=== PATIENT | female | born 1985 | race African-American/Black ===

== ENCOUNTER 2019-04-12 16:15 | Emergency (ER) | payer OTHER ==
--- NOTE | 2019-04-12 17:19 | ER ---
Nurse's Notes [facility] Name: Roque Smith Age: 33 yrs Sex: Female : 1985 Arrival Date: 04/12/2019 Time: 16:16 Bed 12 Private MD: Diagnosis: Low back pain Presentation: 04/12 16:33 Presenting complaint: Patient states: lower back pain for 6 months, has been taking la1 nsaids and tylenol but I do not like taking pills and they are not helping. Transition of care: patient was not received from another setting of care. Onset of symptoms was April 12, 2019. Risk Assessment: Do you want to hurt yourself or someone else? Patient reports no desire to harm self or others. Initial Sepsis Screen: Does the patient meet any 2 criteria? No. Patient's initial sepsis screen is negative. Does the patient have a suspected source of infection? No. Patient's initial sepsis screen is negative. Care prior to arrival: None. 16:33 Method Of Arrival: Ambulatory la1 16:33 Acuity: DANNIE 5 la1 Historical: - Allergies: 16:33 No Known Allergies; la1 - PMHx: 16:33 Hypertension; la1 - Immunization history:: Adult Immunizations up to date. - Social history:: Smoking status: Patient/guardian denies using tobacco. - Ebola Screening: : No symptoms or risks identified at this time. Screenin:43 Abuse screen: Denies threats or abuse. Nutritional screening: No deficits noted. la1 Tuberculosis screening: No symptoms or risk factors identified. Fall Risk None identified. Assessment: 16:42 General: Appears in no apparent distress. Behavior is calm, cooperative. Pain: la1 Complains of pain in left low back and right low back. Neuro: Level of Consciousness is awake, alert, obeys commands, Oriented to person, place, time, situation. Neuro: Gait is steady. Cardiovascular: Capillary refill < 3 seconds Patient's skin is warm and dry. Respiratory: Airway is patent Respiratory effort is even, unlabored. GI: No signs and/or symptoms were reported involving the gastrointestinal system. : No signs and/or symptoms were reported regarding the genitourinary system. Musculoskeletal: Circulation, motion, and sensation intact. Vital Signs: 16:32 BP 123 / 85; Pulse 76; Resp 16; Temp 97.5; Pulse Ox 98% on R/A; Weight 108.86 kg; la1 Height 5 ft. 3 in. (160.02 cm); 16:32 Body Mass Index 42.51 (108.86 kg, 160.02 cm) la1 ED Course: 16:16 Patient arrived in ED. as 16:33 Triage completed. la1 16:33 Arm band placed on left wrist. la1 16:42 Carroll Alaniz, RN is Primary Nurse. la1 16:43 Patient has correct armband on for positive identification. la1 16:43 No provider procedures requiring assistance completed. Patient did not have IV access la1 during this emergency room visit. 16:47 [facility] Re[facility] F[facility]-C [facility]. kb 16:47 Rickie Paniagua MD is Attending Physician. kb Administered Medications: No medications were administered Outcome: 17:18 Discharge ordered by MD. kb 17:38 Discharged to home ambulatory. la1 17:38 Condition: stable 17:38 Discharge instructions given to patient, Instructed on discharge instructions, follow up and referral plans. medication usage, Demonstrated understanding of instructions, follow-up care, medications, Prescriptions given X 1. 17:39 Patient left the ED. la1 Signatures: Yara Reza FNP-C ADVICE LINE RN-Cass Escamilla as Carroll Alaniz, RN RN la1
--- NOTE | 2019-04-12 17:19 | EDPHYS ---
Physician Documentation [facility] Name: Roque Smith Age: 33 yrs Sex: Female : 1985 Arrival Date: 04/12/2019 Time: 16:16 Bed 12 Private MD: ED Physician Rickie Paniagua HPI: 04/12 18:00 This 33 yrs old Black Female presents to ER via Ambulatory with complaints of Leg Pain, kb Back Pain. 18:01 The patient presents with pain that is chronic, with no known mechanism of injury. The kb symptoms are located in the low back. Onset: The symptoms/episode began/occurred 6 month(s) ago. The pain does not radiate. Associated signs and symptoms: The patient has no apparent associated signs or symptoms. The problem was sustained from unknown cause. Modifying factors: The patient symptoms are alleviated by nothing, the patient symptoms are aggravated by any movement. Severity of symptoms: At their worst the symptoms were moderate, in the emergency department the symptoms are unchanged. The patient has not experienced similar symptoms in the past. The patient has not recently seen a physician. Historical: - Allergies: 16:33 No Known Allergies; la1 - PMHx: 16:33 Hypertension; la1 - Immunization history:: Adult Immunizations up to date. - Social history:: Smoking status: Patient/guardian denies using tobacco. - Ebola Screening: : No symptoms or risks identified at this time. ROS: 17:55 Constitutional: Negative for fever, chills, and weight loss, Neck: Negative for injury, kb pain, and swelling, Cardiovascular: Negative for chest pain, palpitations, and edema, Respiratory: Negative for shortness of breath, cough, wheezing, and pleuritic chest pain, Abdomen/GI: Negative for abdominal pain, nausea, vomiting, diarrhea, and constipation, : Negative for injury, bleeding, discharge, and swelling, MS/Extremity: Negative for injury and deformity, Skin: Negative for injury, rash, and discoloration, Neuro: Negative for headache, weakness, numbness, tingling, and seizure. 17:55 Back: Positive for pain at rest, pain with movement, of the low back area. Exam: 17:55 Constitutional: This is a well developed, well nourished patient who is awake, alert, kb and in no acute distress. Head/Face: Normocephalic, atraumatic. Chest/axilla: Normal chest wall appearance and motion. Nontender with no deformity. No lesions are appreciated. Cardiovascular: Regular rate and rhythm with a normal S1 and S2. No gallops, murmurs, or rubs. Normal PMI, no JVD. No pulse deficits. Respiratory: Lungs have equal breath sounds bilaterally, clear to auscultation and percussion. No rales, rhonchi or wheezes noted. No increased work of breathing, no retractions or nasal flaring. Abdomen/GI: Soft, non-tender, with normal bowel sounds. No distension or tympany. No guarding or rebound. No evidence of tenderness throughout. Skin: Warm, dry with normal turgor. Normal color with no rashes, no lesions, and no evidence of cellulitis. MS/ Extremity: Pulses equal, no cyanosis. Neurovascular intact. Full, normal range of motion. Neuro: Awake and alert, GCS 15, oriented to person, place, time, and situation. Cranial nerves II-XII grossly intact. Motor strength 5/5 in all extremities. Sensory grossly intact. Cerebellar exam normal. Normal gait. 17:55 Back: pain, that is moderate, of the low back area, ROM is painful, with all movement, normal spinal alignment noted. 18:01 Neuro: Exam negative for acute changes. kb Vital Signs: 16:32 BP 123 / 85; Pulse 76; Resp 16; Temp 97.5; Pulse Ox 98% on R/A; Weight 108.86 kg; la1 Height 5 ft. 3 in. (160.02 cm); 16:32 Body Mass Index 42.51 (108.86 kg, 160.02 cm) la1 MDM: 16:47 Patient medically screened. kb 17:55 Data reviewed: vital signs, nurses notes. Data interpreted: Pulse oximetry: on room air kb is 98 %. Interpretation: normal. 17:56 Counseling: I had a detailed discussion with the patient and/or guardian regarding: the kb historical points, exam findings, and any diagnostic results supporting the discharge/admit diagnosis, the need for outpatient follow up, a family practitioner, to return to the emergency department if symptoms worsen or persist or if there are any questions or concerns that arise at home. Administered Medications: No medications were administered Disposition: 18:15 Co-signature as Attending Physician, Rickie Paniagua MD. rn Disposition: 04/12/19 17:18 Discharged to Home. Impression: Low back pain. - Condition is Stable. - Discharge Instructions: Back Injury Prevention, [id number], Back Pain, Adult, Dbdw-[id number], Back Exercises, Yknw-uy-Rrto. - Prescriptions for Cyclobenzaprine 10 mg Oral Tablet - take 1 tablet by ORAL route every 8 hours As needed; 21 tablet. - Medication Reconciliation Form, Thank You Letter, Antibiotic Education, Prescription Opioid Use form. - Follow up: Emergency Department; When: As needed; Reason: Worsening of condition. Follow up: Private Physician; When: 2 - 3 days; Reason: Recheck today's complaints, Continuance of care, Re-evaluation by your physician. Signatures: Yara Reza, IZABELLA-C CHERRY PITTER-Rickie Avila MD MD rn AttemCarroll saravia RN RN la1 Corrections: (The following items were deleted from the chart) 17:39 17:18 04/12/2019 17:18 Discharged to Home. Impression: Low back pain. Condition is la1 Stable. Forms are Medication Reconciliation Form, Thank You Letter, Antibiotic Education, Prescription Opioid Use. Follow up: Emergency Department; When: As needed; Reason: Worsening of condition. Follow up: Private Physician; When: 2 - 3 days; Reason: Recheck today's complaints, Continuance of care, Re-evaluation by your physician. kb
[2019-04-12 17:57] VITALS: BP 123/85; TEMP 97.5; O2SAT 98
== END 2019-04-12 17:39 | disposition home or self-care (01) ==
LOC: ER 16:15
DX: M54.5 Low back pain (principal)
CPT/HCPCS: 99282

== ENCOUNTER 2020-07-23 12:12 | Emergency (ER) | payer OTHER ==
[2012-03-10 09:05] VITALS: BP 118/58
--- NOTE | 2020-07-23 13:56 | EDPHYS ---
Physician Documentation [facility] Name: Roque Smith Age: 34 yrs Sex: Female : 1985 Arrival Date: 07/23/2020 Time: 12:17 Bed 23 Private MD: RIN Physician Codey Weber HPI: 07/23 14:02 This 34 yrs old Black Female presents to ER via Ambulatory with complaints of Mouth kb Problem. 14:02 The patient presents with pain, redness, swelling. The problem is located in the gums kb and left buccal mucosa. Onset: The symptoms/episode began/occurred 3 month(s) ago, and became worse 1 week(s) ago. Duration: The symptoms are continuous. Modifying factors: The symptoms are alleviated by nothing, the symptoms are aggravated by chewing, food, talking. Associated signs and symptoms: Pertinent positives: pain, redness in area, swelling. Severity of symptoms: At their worst the symptoms were moderate, in the emergency department the symptoms are unchanged. The patient has not experienced similar symptoms in the past. The patient has not recently seen a physician. Pt reports she has had a lot of pain in the upper left side of her mouth for 3 months. Went to a dentist and was told she had gingivitis. Was told she needed some things done but she had to pay for it and pt reports she won't have the money until income tax return. Mother states she got her insurance so she can go, but it doesn't kick in until August. Pain, redness and swelling has been worse over the last week.. Historical: - Allergies: 12:24 PENICILLINS; vg1 - PMHx: 12:24 Hypertension; vg1 - Immunization history:: Adult Immunizations up to date, Flu vaccine is not up to date. - Social history:: Smoking status: Patient denies any tobacco usage or history of. ROS: 13:58 Constitutional: Negative for fever, chills, and weight loss, Cardiovascular: Negative kb for chest pain, palpitations, and edema, Respiratory: Negative for shortness of breath, cough, wheezing, and pleuritic chest pain, Abdomen/GI: Negative for abdominal pain, nausea, vomiting, diarrhea, and constipation, MS/Extremity: Negative for injury and deformity, Skin: Negative for injury, rash, and discoloration, Neuro: Negative for headache, weakness, numbness, tingling, and seizure. 13:58 ENT: Positive for dental pain. Exam: 13:58 Constitutional: This is a well developed, well nourished patient who is awake, alert, kb and in no acute distress. Head/Face: Normocephalic, atraumatic. Chest/axilla: Normal chest wall appearance and motion. Nontender with no deformity. No lesions are appreciated. Cardiovascular: Regular rate and rhythm with a normal S1 and S2. No gallops, murmurs, or rubs. Normal PMI, no JVD. No pulse deficits. Respiratory: Lungs have equal breath sounds bilaterally, clear to auscultation and percussion. No rales, rhonchi or wheezes noted. No increased work of breathing, no retractions or nasal flaring. Abdomen/GI: Soft, non-tender, with normal bowel sounds. No distension or tympany. No guarding or rebound. No evidence of tenderness throughout. Skin: Warm, dry with normal turgor. Normal color with no rashes, no lesions, and no evidence of cellulitis. MS/ Extremity: Pulses equal, no cyanosis. Neurovascular intact. Full, normal range of motion. Neuro: Awake and alert, GCS 15, oriented to person, place, time, and situation. Cranial nerves II-XII grossly intact. Motor strength 5/5 in all extremities. Sensory grossly intact. Cerebellar exam normal. Normal gait. 13:58 ENT: Dental exam: abscess, gum swelling, pain. Vital Signs: 12:18 BP 122 / 87; Pulse 91; Resp 16; Temp 98.4; Pulse Ox 99% on R/A; Weight 110.68 kg; vg1 Height 5 ft. 3 in. (160.02 cm); Pain 10/10; 12:18 Body Mass Index 43.22 (110.68 kg, 160.02 cm) vg1 MDM: 13:46 Patient medically screened. kb 13:55 Data reviewed: vital signs, nurses notes. Data interpreted: Pulse oximetry: on room air kb is 99 %. Interpretation: normal. Counseling: I had a detailed discussion with the patient and/or guardian regarding: the historical points, exam findings, and any diagnostic results supporting the discharge/admit diagnosis, the need for outpatient follow up, a dentist, to return to the emergency department if symptoms worsen or persist or if there are any questions or concerns that arise at home. Administered Medications: 14:12 Drug: Clindamycin 600 mg Route: IM; Site: right gluteus; ss 14:27 Follow up: Response: No adverse reaction ss 14:12 Drug: [place] (7.5 mg-325 mg) 1 tabs Route: PO; ss 14:27 Follow up: Response: No adverse reaction; Medication administered at discharge. ss Disposition: 15:51 Co-signature as Attending Physician, Codey Weber MD I agree with the assessment and radha plan of care. Disposition: 07/23/20 13:56 Discharged to Home. Impression: Periapical abscess without sinus, Gingivitis and periodontal diseases. - Condition is Stable. - Discharge Instructions: Dental Pain, Kqye-jl-Shbf, Gingivitis, Nnou-eo-Ngnt, Dental Abscess, Fmrz-he-Yijk. - Prescriptions for chlorhexidine gluconate 0.12 % Mucous Membrane mouthwash - place 15 milliliter by MUCOUS MEMBRANE route 2 times per day after brushing teeth, swish in mouth for 30 seconds then spit out; 480 milliliter. Clindamycin HCl 300 mg Oral Capsule - take 1 capsule by ORAL route every 6 hours for 10 days; 40 capsule. Diclofenac Sodium 75 mg Oral Tablet, Delayed Release (E.C.) - take 1 tablet by ORAL route 2 times per day As needed; 30 tablet. - Medication Reconciliation Form, Thank You Letter, Antibiotic Education, Prescription Opioid Use form. - Follow up: Emergency Department; When: As needed; Reason: Worsening of condition. Follow up: Private Physician; When: 2 - 3 days; Reason: Recheck today's complaints, Continuance of care, Re-evaluation by your physician. Signatures: Yara Reza, CERTIFIED REGISTERED DENTAL ASSISTANT-C IZABELLA-Codey Khoury MD MD cha Smirch, Shelby, RN RN ss Garcia, Victoria, RN RN vg1 Corrections: (The following items were deleted from the chart) 14:27 13:56 07/23/2020 13:56 Discharged to Home. Impression: Periapical abscess without ss sinus; Gingivitis and periodontal diseases. Condition is Stable. Forms are Medication Reconciliation Form, Thank You Letter, Antibiotic Education, Prescription Opioid Use. Follow up: Emergency Department; When: As needed; Reason: Worsening of condition. Follow up: Private Physician; When: 2 - 3 days; Reason: Recheck today's complaints, Continuance of care, Re-evaluation by your physician. kb
--- NOTE | 2020-07-23 13:56 | ER ---
Nurse's Notes [facility] Name: Roque Smith Age: 34 yrs Sex: Female : 1985 Arrival Date: 07/23/2020 Time: 12:17 Bed 23 Private MD: Diagnosis: Periapical abscess without sinus;Gingivitis and periodontal diseases Presentation: 07/23 12:18 Chief complaint: Parent and/or Guardian states: Mouth pain for about 2 weeks ago. vg1 Parent states its 'gingivitis' and there is a 'hole' at the top of the mouth. Coronavirus screen: Client denies travel out of the [place] in the last 14 days. At this time, the client does not indicate any symptoms associated with coronavirus-19. Ebola Screen: Patient negative for fever greater than or equal to 101.5 degrees Fahrenheit, and additional compatible Ebola Virus Disease symptoms. Initial Sepsis Screen: Does the patient meet any 2 criteria? No. Patient's initial sepsis screen is negative. Does the patient have a suspected source of infection? No. Patient's initial sepsis screen is negative. Risk Assessment: Do you want to hurt yourself or someone else? Patient reports no desire to harm self or others. Onset of symptoms was June 2020. 12:18 Acuity: DANNIE 4 vg1 12:18 Method Of Arrival: Ambulatory vg1 Triage Assessment: 12:26 General: Appears in no apparent distress. Behavior is calm, cooperative. Pain: vg1 Complains of pain in mouth Pain currently is 10 out of 10 on a pain scale. Pain began two weeks ago. Neuro: Level of Consciousness is awake, alert, obeys commands, Oriented to person, place, time, situation. Respiratory: Respiratory effort is even, unlabored. Historical: - Allergies: 12:24 PENICILLINS; vg1 - PMHx: 12:24 Hypertension; vg1 - Immunization history:: Adult Immunizations up to date, Flu vaccine is not up to date. - Social history:: Smoking status: Patient denies any tobacco usage or history of. Screenin:12 Abuse screen: Denies threats or abuse. Denies injuries from another. Nutritional ss screening: No deficits noted. Tuberculosis screening: Never had TB. Fall Risk None identified. Assessment: 13:55 General: Appears uncomfortable, Behavior is calm, cooperative, quiet. Pain: Complains ss of pain in left buccal mucosa and gums and mouth Pain currently is 10 out of 10 on a pain scale. Quality of pain is described as tender, throbbing. Neuro: Level of Consciousness is awake, alert, obeys commands. Respiratory: Respiratory effort is even, unlabored, Respiratory pattern is regular, symmetrical. Derm: Skin is intact, is healthy with good turgor, Skin is dry, Skin is pink, warm \T\ dry. normal. Musculoskeletal: Circulation, motion, and sensation intact. Range of motion: intact in all extremities. 14:13 Reassessment: Patient appears in no apparent distress at this time. Patient and/or ss family updated on plan of care and expected duration. Pain level reassessed. Patient is alert, oriented x 3, equal unlabored respirations, skin warm/dry/pink. Vital Signs: 12:18 BP 122 / 87; Pulse 91; Resp 16; Temp 98.4; Pulse Ox 99% on R/A; Weight 110.68 kg; vg1 Height 5 ft. 3 in. (160.02 cm); Pain 10/10; 12:18 Body Mass Index 43.22 (110.68 kg, 160.02 cm) vg1 ED Course: 12:17 Patient arrived in ED. mr 12:24 Triage completed. vg1 12:25 Arm band placed on. vg1 13:46 Yara Reza FNP-C is [facility]. kb 13:46 Codey Weber MD is Attending Physician. kb 13:58 Maya Eli, DAVID is Primary Nurse. ss 14:12 Patient has correct armband on for positive identification. Bed in low position. Call ss light in reach. 14:12 No provider procedures requiring assistance completed. Patient did not have IV access ss during this emergency room visit. Administered Medications: 14:12 Drug: Clindamycin 600 mg Route: IM; Site: right gluteus; ss 14:27 Follow up: Response: No adverse reaction ss 14:12 Drug: [place] (7.5 mg-325 mg) 1 tabs Route: PO; ss 14:27 Follow up: Response: No adverse reaction; Medication administered at discharge. ss Outcome: 13:56 Discharge ordered by . kb 14:26 Discharged to home ambulatory, with family. ss 14:26 Condition: good 14:26 Discharge instructions given to patient, family, Instructed on discharge instructions, follow up and referral plans. medication usage, Demonstrated understanding of instructions, follow-up care, medications, Prescriptions given X 3. 14:27 Patient left the ED. ss Signatures: Yara Reza, IZABELLA-C COLD ROLL INSPECTOR-Maude Camacho mr Maya Eli, RN RN ss Dalia Parr RN RN vg1
[2020-07-23] MEDS ORDERED: CLINDAMYCIN IV 150 MG/ML (4 mL) VIAL ONE (14:15)
[2020-07-23] MEDS ORDERED: HYDROCODONE/APAP 7.5/325 MG TAB ONE (14:18)
== END 2020-07-23 14:27 | disposition home or self-care (01) ==
LOC: ER 12:12
DX: K04.7 Periapical abscess without sinus (principal); K05.10 Chronic gingivitis, plaque induced; I10 Essential (primary) hypertension; Z88.0 Allergy status to penicillin
CPT/HCPCS: 96372; 99283; S0077

== ENCOUNTER 2020-11-30 18:49 | Emergency (ER) | payer OTHER ==
[2012-03-10 09:05] VITALS: BP 118/58
--- NOTE | 2020-11-30 19:20 | ER ---
[facility]'s [facility] Name: Roque Smith Age: 35 yrs Sex: Female : 1985 Arrival Date: 11/30/2020 Time: 18:52 Bed 14 Private MD: Diagnosis: Periapical abscess without sinus;Gingivitis and periodontal diseases Presentation: 11/30 19:04 Chief complaint: Patient states: Gum pain, swelling for 1 month. States she came in 1 August for the same. Trying to find a dentist that takes her insurance. Coronavirus screen: Client denies travel out of the [place] in the last 14 days. At this time, the client does not indicate any symptoms associated with coronavirus-19. Ebola Screen: Patient denies travel to an Ebola-affected area in the 21 days before illness onset. Initial Sepsis Screen: Does the patient meet any 2 criteria? HR > 90 bpm. No. Patient's initial sepsis screen is negative. Does the patient have a suspected source of infection? Yes: Other: gum infection. Risk Assessment: Do you want to hurt yourself or someone else? Patient reports no desire to harm self or others. Onset of symptoms was October 30, 2020. 19:04 Method Of Arrival: Ambulatory 1 19:04 Acuity: DANNIE 4 ll1 Triage Assessment: 19:06 General: Appears uncomfortable, Behavior is calm, cooperative. Pain: Complains of pain ll1 in mouth Quality of pain is described as aching. EENT: redness, swelling to gums of mouth (all over). Reports pain in mouth/gums. Neuro: No deficits noted. Cardiovascular: No deficits noted. Respiratory: No deficits noted. REVENUE ACCOUNTING MANAGER: 19:57 LMP N/A - control method ll1 Historical: - Allergies: 19:03 PENICILLINS; ll1 - PMHx: 19:03 Hypertension; Asthma; ll1 - PSHx: 19:03 None; ll1 - Immunization history:: Flu vaccine is up to date. - Social history:: Smoking status: Patient denies any tobacco usage or history of. Screenin:06 Abuse screen: Denies threats or abuse. Nutritional screening: No deficits noted. ll1 Tuberculosis screening: No symptoms or risk factors identified. Fall Risk None identified. Total Ortiz Fall Scale indicates No Risk (0-24 pts). Assessment: 19:56 Reassessment: No changes from previously documented assessment. Patient and/or family ll1 updated on plan of care and expected duration. Pain level reassessed. Vital Signs: 19:04 BP 125 / 85; Pulse 102; Resp 18; Temp 97.5; Pulse Ox 98% on R/A; Weight 111.13 kg; ll1 Height 5 ft. 3 in. (160.02 cm); Pain 10/10; 19:56 BP 122 / 86; ll1 19:56 Pulse 91; Resp 18; Pulse Ox 98% ; ll1 19:04 Body Mass Index 43.40 (111.13 kg, 160.02 cm) 1 ED Course: 18:52 Patient arrived in ED. ds1 18:58 Darrel Montalvo NP is [facility]. pm1 18:59 Rickie Paniagua MD is Attending Physician. pm1 19:03 Jenelle Monaco, RN is Primary Nurse. ll1 19:03 Arm band placed on Patient placed in an exam room, on a stretcher. ll1 19:06 Triage completed. ll1 19:06 Patient has correct armband on for positive identification. Bed in low position. Call ll1 light in reach. Side rails up X 1. Pulse ox on. NIBP on. 19:56 No provider procedures requiring assistance completed. Patient did not have IV access ll1 during this emergency room visit. Administered Medications: 19:38 Drug: Clindamycin 600 mg Route: IM; Site: left gluteus; ll1 19:55 Follow up: Response: No adverse reaction; RASS: Alert and Calm (0) ll1 19:38 Drug: [place] (HYDROcodone-acetaminophen) (7.5 mg-325 mg) 1 tabs Route: PO; ll1 19:55 Follow up: Response: No adverse reaction; RASS: Alert and Calm (0) 1 Outcome: 19:19 Discharge ordered by . pm1 19:57 Discharged to home ambulatory. ll1 19:57 Condition: stable 19:57 Discharge instructions given to patient, Instructed on discharge instructions, follow up and referral plans. medication usage, Demonstrated understanding of instructions, follow-up care, medications, Prescriptions given X 3. 19:57 Patient left the ED. ll1 Signatures: Makenna Hines ds1 Darrel Montalvo NP AGRICULTURAL PLOW OPERATOR pm1 Jenelle Monaco, RN RN ll1
--- NOTE | 2020-11-30 19:20 | EDPHYS ---
Physician Documentation [facility] Name: Roque Smith Age: 35 yrs Sex: Female : 1985 Arrival Date: 11/30/2020 Time: 18:52 Bed 14 Private MD: ED Physician Rickie Paniagua HPI: 11/30 19:19 This 35 yrs old Black Female presents to ER via Ambulatory with complaints of Mouth pm1 Swelling, Jaw Pain. 19:19 The patient presents with pain, swelling. The problem is located in the upper left pm1 second molar. Onset: The symptoms/episode began/occurred 1 month(s) ago. Duration: The symptoms are chronic, are continuous. Modifying factors: The symptoms are alleviated by nothing. Associated signs and symptoms: Pertinent negatives: dysphagia, fever, inability to eat, vomiting. Severity of symptoms: in the emergency department the symptoms are actually worse. Went to the [place] [facility] and was told that she needs to extract all her teeth. She wanted another option and is going to see a dentist in [place] that takes her insurance. 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 - Social history:: Smoking status: Patient denies any tobacco usage or history of. ROS: 19:19 Constitutional: Negative for fever, chills, and weight loss. pm1 19:19 Neck: Negative for injury, pain, and swelling, Cardiovascular: Negative for chest pain, palpitations, and edema, Respiratory: Negative for shortness of breath, cough, wheezing, and pleuritic chest pain, Neuro: Negative for headache, weakness, numbness, tingling, and seizure. 19:19 ENT: Positive for dental pain, Negative for sore throat, difficulty swallowing, difficulty handling secretions, hoarseness. Exam: 19:19 Constitutional: This is a well developed, well nourished patient who is awake, alert, pm1 and in no acute distress. Head/Face: Normocephalic, atraumatic. 19:19 Neck: Trachea midline, no thyromegaly or masses palpated, and no cervical lymphadenopathy. Supple, full range of motion without nuchal rigidity, or vertebral point tenderness. No Meningismus. 19:19 Skin: Warm, dry with normal turgor. Normal color with no rashes, no lesions, and no evidence of cellulitis. MS/ Extremity: Pulses equal, no cyanosis. Neurovascular intact. Full, normal range of motion. 19:19 ENT: External ear(s): are unremarkable, Ear canal(s): are normal, TM's: are normal, Mouth: Dental exam: abscess, is not appreciated, gum swelling, that is moderate, diffusely, pain, that is mild, specifically in the upper left second molar (#15). 19:19 Cardiovascular: Exam negative for acute changes, Rate: normal, Rhythm: regular, Pulses: no pulse deficits are appreciated. 19:19 Respiratory: Exam negative for acute changes, respiratory distress, shortness of breath. 19:19 Neuro: Exam negative for acute changes, Orientation: is normal, Mentation: is normal, Motor: is normal, moves all fours, Gait: is steady, at a normal pace, without difficulty. Vital Signs: 19:04 BP 125 / 85; Pulse 102; Resp 18; Temp 97.5; Pulse Ox 98% on R/A; Weight 111.13 kg; ll1 Height 5 ft. 3 in. (160.02 cm); Pain 10/10; 19:56 BP 122 / 86; ll1 19:56 Pulse 91; Resp 18; Pulse Ox 98% ; ll1 19:04 Body Mass Index 43.40 (111.13 kg, 160.02 cm) ll1 MDM: 19:07 Patient medically screened. pm1 19:19 Data reviewed: vital signs. Data interpreted: Pulse oximetry: on room air is 98 %. pm1 Interpretation: normal. Counseling: I had a detailed discussion with the patient and/or guardian regarding: the historical points, exam findings, and any diagnostic results supporting the discharge/admit diagnosis, the need for outpatient follow up, for definitive care, a dentist, to return to the emergency department if symptoms worsen or persist or if there are any questions or concerns that arise at home. 19:23 ED course: Found a dentist in [place] that takes her insurance. Is planning to see them pm1 next week. Administered Medications: 19:38 Drug: Clindamycin 600 mg Route: IM; Site: left gluteus; ll1 19:55 Follow up: Response: No adverse reaction; RASS: Alert and Calm (0) ll1 19:38 Drug: [place] (HYDROcodone-acetaminophen) (7.5 mg-325 mg) 1 tabs Route: PO; ll1 19:55 Follow up: Response: No adverse reaction; RASS: Alert and Calm (0) ll1 Disposition: 12/01 07:51 Co-signature as Attending Physician, Rickie Paniagua MD. rn Disposition: 11/30/20 19:19 Discharged to Home. Impression: Periapical abscess without sinus, Gingivitis and periodontal diseases. - Condition is Stable. - Discharge Instructions: Dental Pain, Diet and Dental Disease, Preventive Dental Care, Adult. - Prescriptions for chlorhexidine gluconate 0.12 % Mucous Membrane mouthwash - place 15 milliliter by MUCOUS MEMBRANE route 2 times per day after brushing teeth, swish in mouth for 30 seconds then spit out; 480 milliliter. Clindamycin HCl 300 mg Oral Capsule - take 1 capsule by ORAL route every 6 hours for 10 days; 40 capsule. Diclofenac Sodium 75 mg Oral Tablet Sustained Release - take 1 tablet by ORAL route 2 times per day; 30 tablet. - Medication Reconciliation Form, Thank You Letter, Antibiotic Education, Prescription Opioid Use form. - Follow up: Emergency Department; When: As needed; Reason: Worsening of condition. Follow up: Private Physician; When: 2 - 3 days; Reason: Recheck today's complaints, Continuance of care, Re-evaluation by your physician. - Problem is new. - Symptoms have improved. Signatures: Rickie Paniagua MD MD rn Marinas, Patrick, NP SCREEN PRINTING PRESS OPERATOR pm1 Jenelle Monaco RN RN ll1 Corrections: (The following items were deleted from the chart) 11/30 19:57 19:19 11/30/2020 19:19 Discharged to Home. Impression: Periapical abscess without ll1 sinus; Gingivitis and periodontal diseases. Condition is Stable. Forms are Medication Reconciliation Form, Thank You Letter, Antibiotic Education, Prescription Opioid Use. Follow up: Emergency Department; When: As needed; Reason: Worsening of condition. Follow up: Private Physician; When: 2 - 3 days; Reason: Recheck today's complaints, Continuance of care, Re-evaluation by your physician. Problem is new. Symptoms have improved. pm1
[2020-11-30] MEDS ORDERED: CLINDAMYCIN IV 150 MG/ML (4 mL) VIAL ONE (19:46)
[2020-11-30] MEDS ORDERED: HYDROCODONE/APAP 7.5/325 MG TAB ONE (19:46)
== END 2020-11-30 19:57 | disposition home or self-care (01) ==
LOC: ER 18:49
DX: K04.7 Periapical abscess without sinus (principal); K05.10 Chronic gingivitis, plaque induced; K05.6 Periodontal disease, unspecified; I10 Essential (primary) hypertension; J45.909 Unspecified asthma, uncomplicated
CPT/HCPCS: 96372; 99283; S0077

== ENCOUNTER 2021-08-06 21:10 | Emergency (ER) | payer OTHER ==
[2021-08-06] MEDS ORDERED: ONDANSETRON 4 MG (ODT) TAB ONE (23:01)
--- NOTE | 2021-08-06 23:17 | EDPHYS ---
Physician Documentation [facility] Name: Roque Smith Age: 35 yrs Sex: Female : 1985 Arrival Date: 08/06/2021 Time: 21:13 Bed 16 Private MD: ED Physician Columba Gaitan HPI: 08/06 22:17 This 35 yrs old Black Female presents to ER via EMS with complaints of Breathing jr8 Difficulty. 22:17 The patient has not experienced similar symptoms in the past. The patient has not jr8 recently seen a physician. 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 Patient denies chest pain, difficult eating or drinking, or abdominal pain. Patient denies any other illicit drug use. . 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 - Social history:: Smoking status: Patient denies any tobacco usage or history of. ROS: 22:17 Eyes: Negative for injury, pain, redness, and discharge, ENT: Negative for injury, jr8 pain, and discharge, Neck: Negative for injury, pain, and swelling, Cardiovascular: Negative for chest pain, palpitations, and edema, Abdomen/GI: Negative for abdominal pain, nausea, vomiting, diarrhea, and constipation, Back: Negative for injury and pain, MS/Extremity: Negative for injury and deformity, Skin: Negative for injury, rash, and discoloration, Neuro: Negative for headache, weakness, numbness, tingling, and seizure. 22:17 Respiratory: Positive for shortness of breath. Exam: 22:17 Eyes: Pupils equal round and reactive to light, extra-ocular motions intact. Lids and jr8 lashes normal. Conjunctiva and sclera are non-icteric and not injected. Cornea within normal limits. Periorbital areas with no swelling, redness, or edema. ENT: Nares patent. No nasal discharge, no septal abnormalities noted. Tympanic membranes are normal and external auditory canals are clear. Oropharynx with no redness, swelling, or masses, exudates, or evidence of obstruction, uvula midline. Mucous membranes moist. Neck: Trachea midline, no thyromegaly or masses palpated, and no cervical lymphadenopathy. Supple, full range of motion without nuchal rigidity, or vertebral point tenderness. No Meningismus. Cardiovascular: Regular rate and rhythm with a normal S1 and S2. No gallops, murmurs, or rubs. Normal PMI, no JVD. No pulse deficits. Respiratory: Lungs have equal breath sounds bilaterally, clear to auscultation and percussion. No rales, rhonchi or wheezes noted. No increased work of breathing, no retractions or nasal flaring. Abdomen/GI: Soft, non-tender, with normal bowel sounds. No distension or tympany. No guarding or rebound. No evidence of tenderness throughout. Back: No spinal tenderness. No costovertebral tenderness. Full range of motion. Skin: Warm, dry with normal turgor. Normal color with no rashes, no lesions, and no evidence of cellulitis. MS/ Extremity: Pulses equal, no cyanosis. Neurovascular intact. Full, normal range of motion. Neuro: Awake and alert, GCS 15, oriented to person, place, time, and situation. Cranial nerves II-XII grossly intact. Motor strength 5/5 in all extremities. Sensory grossly intact. Cerebellar exam normal. Normal gait. Vital Signs: 21:22 BP 117 / 99; Pulse 94; Resp 20 S; Temp 99(O); Pulse Ox 99% on R/A; Weight 110.68 kg bb (R); Height 5 ft. 3 in. (160.02 cm) (R); 23:20 BP 137 / 95; Pulse 75; Resp 17; Temp 98.4; Pulse Ox 97% on R/A; Pain 1/10; mr2 21:22 Body Mass Index 43.22 (110.68 kg, 160.02 cm) bb MDM: 21:29 Patient medically screened. jr8 23:15 Data reviewed: vital signs, nurses notes, and as a result, I will discharge patient. jr8 Data interpreted: Pulse oximetry: on room air is 99 %. Interpretation: normal. Counseling: I had a detailed discussion with the patient and/or guardian regarding: the historical points, exam findings, and any diagnostic results supporting the discharge/admit diagnosis, the need for outpatient follow up, a family practitioner, to return to the emergency department if symptoms worsen or persist or if there are any questions or concerns that arise at home. Administered Medications: 22:41 Drug: Zofran (Ondansetron) 4 mg Route: PO; mr2 Disposition: 08/07 19:44 Co-signature as Attending Physician, Columba Gaitan MD I agree with the assessment and sp3 plan of care. Disposition Summary: 08/06/21 23:16 Discharge Ordered Location: Home jr8 Problem: new jr8 Symptoms: have improved jr8 Condition: Stable jr8 Diagnosis - Cannabis abuse with cannabis-induced anxiety disorder jr8 Followup: jr8 - With: Private Physician - When: 2 - 3 days - Reason: Recheck today's complaints, Continuance of care, Re-evaluation by your physician Discharge Instructions: - Discharge Summary Sheet jr8 - Cannabis Use Disorder jr8 Forms: - Medication Reconciliation Form jr8 - Thank You Letter jr8 - Antibiotic Education jr8 - Prescription Opioid Use jr8 Signatures: Zahraa Nowak RN RN Parminder Hall PA PA jr8 Columba Gaitan MD MD sp3 Markel Tanner RN RN mr2
--- NOTE | 2021-08-06 23:17 | ER ---
Nurse's Notes [facility] Name: Roque Smith Age: 35 yrs Sex: Female : 1985 Arrival Date: 08/06/2021 Time: 21:13 Bed 16 Private MD: Diagnosis: Cannabis abuse with cannabis-induced anxiety disorder Presentation: 08/06 21:15 Chief complaint: EMS states: they were toned out for report of pt with difficulty bb breathing after ingesting [place] Burst on arrival room air sats were 99%. Coronavirus screen: difficulty breathing. Ebola Screen: No symptoms or risks identified at this time. Initial Sepsis Screen: Does the patient meet any 2 criteria? No. Patient's initial sepsis screen is negative. Does the patient have a suspected source of infection? No. Patient's initial sepsis screen is negative. Risk Assessment: Do you want to hurt yourself or someone else? Patient reports no desire to harm self or others. Onset of symptoms was August 06, 2021. 21:15 Method Of Arrival: EMS: [facility] bb 21:15 Acuity: DANNIE 4 bb 21:18 Note pt in bathroom. bb Triage Assessment: 22:00 General: Appears in no apparent distress. Behavior is calm. Pain: Denies pain. mr2 Respiratory: Reports shortness of breath at rest since 1999 Onset: The symptoms/episode began/occurred gradually, the patient has mild shortness of breath. 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 - Social history:: Smoking status: Patient denies any tobacco usage or history of. Screenin:00 Abuse screen: Denies threats or abuse. Denies injuries from another. Nutritional mr2 screening: No deficits noted. Tuberculosis screening: No symptoms or risk factors identified. Fall Risk None identified. IV access (20 points). Gait- Weak (10 pts.). Assessment: 08/07 00:14 Cardiovascular: Rhythm is sinus rhythm. Respiratory: No deficits noted. Airway is mr2 patent Respiratory effort is even, unlabored, Breath sounds are clear bilaterally. Vital Signs: 12/15 21:22 BP 117 / 99; Pulse 94; Resp 20 S; Temp 99(O); Pulse Ox 99% on R/A; Weight 110.68 kg bb (R); Height 5 ft. 3 in. (160.02 cm) (R); 23:20 BP 137 / 95; Pulse 75; Resp 17; Temp 98.4; Pulse Ox 97% on R/A; Pain 1/10; mr2 21:22 Body Mass Index 43.22 (110.68 kg, 160.02 cm) ED Course: 21:13 Patient arrived in ED. bp1 21:17 Triage completed. bb 21:25 Arm band placed on Patient placed in waiting room, Patient notified of wait time. bb 21:29 Parminder Hall PA is PHCP. jr8 21:29 Columba Gaitan MD is Attending Physician. jr8 22:41 Markel Tanner, RN is Primary Nurse. mr2 23:00 Patient has correct armband on for positive identification. Bed in low position. Side mr2 rails up X2. 23:00 No provider procedures requiring assistance completed. Patient did not have IV access mr2 during this emergency room visit. Administered Medications: 22:41 Drug: Zofran (Ondansetron) 4 mg Route: PO; mr2 Outcome: 23:16 Discharge ordered by . jr8 23:30 Discharged to home ambulatory. mr2 23:30 Condition: stable 23:30 Discharge instructions given to patient. 08/07 00:18 Patient left the ED. mr2 Signatures: Zahraa Nowak RN RN bb Parminder Hall PA PA jr8 Jammie [facility] Markel Tanner RN RN mr2
[2021-08-07 00:24] VITALS: BP 137/95; TEMP 98.4; O2SAT 97
== END 2021-08-07 00:18 | disposition home or self-care (01) ==
LOC: ER 21:10
DX: F12.180 Cannabis abuse with cannabis-induced anxiety disorder (principal); I10 Essential (primary) hypertension; Z88.0 Allergy status to penicillin
CPT/HCPCS: 99284

== ENCOUNTER 2022-07-29 07:42 | Emergency (ER) | payer OTHER ==
--- OUTSIDE RECORDS SUMMARY | 2022-07-29 07:47 | XMS REPORT | Continuity of Care Document ---
:1985 Author Organization [facility] t Address [address] [place] [address] [place] [id number] Care Team Providers Name Role Phone Silvia Valdez Primary Care Physician [phone] Problems This patient has no known problems. Allergies, Adverse Reactions, Alerts This patient has no known allergies or adverse reactions. Medications Ordered Filled Start Stop Current Ordering Indication Dosage Frequency Signature Comments Components Source Medication Medication Date Date Medication? Clinician (SIG) Name Name AMOXICILLIN 2021-08 No 500MG CAP 1-26 00:00: 00 Dose 2021-0 No Unknown 2-25 00:00: 00 Dose 2-0 No Unknown 2-25 00:00: 00 Dose 2020-0 No Unknown 8-06 00:00: 00 Dose 2020-0 No Unknown 8-06 00:00: 00 Dose 2020-0 No Unknown 8-31 00:00: 00 Dose 2020-0 No Unknown 8-31 00:00: 00 amlodipine 2020-0 No 1mg 10 mg 7-16 tablet 00:00: 00 amlodipine 2020-0 No 1mg 10 mg 7-16 tablet 00:00: 00 amlodipine 2020-0 No 1mg 10 mg 7-15 tablet 00:00: 00 amlodipine 2020-0 No 1mg 10 mg 7-15 tablet 00:00: 00 Flagyl 500 2020-0 No 1mg mg tablet 6-17 00:00: 00 Flagyl 500 2020-0 No 1mg mg tablet 6-17 00:00: 00 amlodipine 2020-0 No 1mg 10 mg 1-22 tablet 00:00: 00 amlodipine 2020-0 No 1mg 10 mg 1-22 tablet 00:00: 00 cyclobenzap 2018- No 1mg rine 5 mg 1-30 tablet 00:00: 00 cyclobenzap 2019-1 No 1mg rine 5 mg 1-30 tablet 00:00: 00 amlodipine 2019-1 No 1mg 10 mg 1-27 tablet 00:00: 00 amlodipine 2019-1 No 1mg 10 mg 1-27 tablet 00:00: 00 amlodipine 2019-1 No 1mg 5 mg tablet 1-06 00:00: 00 amlodipine 2019-1 No 1mg 5 mg tablet 1 00:00: 00 Keflex 500 2019-0 No 1mg mg capsule 8- 00:00: 00 Keflex 500 2019-0 No 1mg mg capsule 8 00:00: 00 amlodipine 2019-0 No 1mg 5 mg tablet 6- 00:00: 00 amlodipine 2019-0 No 1mg 5 mg tablet 6 00:00: 00 lisinopril 2019-0 No 1mg 20 6-10 mg-hydrochl 00:00: orothiazide 00 12.5 mg tablet lisinopril 2019-0 No 1mg 20 6-10 mg-hydrochl 00:00: orothiazide 00 12.5 mg tablet folic acid 2019-0 No 1mg 1 mg tablet 12-19 00:00: 00 folic acid 2019-0 No 1mg 1 mg tablet 4 00:00: 00 folic acid 2019-0 No 1mg 1 mg tablet 11-23 00:00: 00 folic acid 2019-0 No 1mg 1 mg tablet 11-23 00:00: 00 lisinopril 2019-0 No 1mg 20 3-15 mg-hydrochl 00:00: orothiazide 00 12.5 mg tablet lisinopril 2019-0 No 1mg 20 3-15 mg-hydrochl 00:00: orothiazide 00 12.5 mg tablet fluticasone 2018-0 No 2mcg/ac 50 1-28 tuation mcg/actuati 00:00: on nasal 00 spray,suspe nsion loratadine 2019-0 No 1mg 10 mg 1-28 tablet 00:00: 00 azithromyci 2019-0 No 1mg n 250 mg 1-28 tablet 00:00: 00 promethazin 2019-0 No 5mg/5 e-phenyleph 1-28 mL rine 6.25 00:00: mg-5 mg/5 00 mL oral syrup fluticasone 2018-0 No 2mcg/ac 50 - tuation mcg/actuati 00:00: on nasal 00 spray,suspe nsion loratadine 2018-0 No 1mg 10 mg 09-19 tablet 00:00: 00 azithromyci 2018-0 No 1mg n 250 mg 09-19 tablet 00:00: 00 promethazin 2018-0 No 5mg/5 e-phenyleph 1-28 mL rine 6.25 00:00: mg-5 mg/5 00 mL oral syrup Vital Signs Vital Name Observation Time Observation Value Comments Source BP Systolic 2022-07-18 13:05:00 132 mm[Hg] BP Diastolic 2022-07-18 13:05:00 87 mm[Hg] Weight Measured 2022-07-18 13:05:00 296.20 pounds Height Measured 2022-07-18 13:05:00 63.00 inches Body Temperature 2022-07-18 13:05:00 98.60 degrees Heart Rate 2022-07-18 13:05:00 98.00 /min Respiratory Rate 2022-07-18 13:05:00 18.00 /min BP Systolic 2022-03-25 09:24:00 129 mm[Hg] BP Diastolic 2022-03-25 09:24:00 85 mm[Hg] Weight Measured 2022-03-25 09:24:00 270.00 pounds Height Measured 2022-03-25 09:24:00 63.00 inches Body Temperature 2022-03-25 09:24:00 98.30 degrees Heart Rate 2022-03-25 09:24:00 85.00 /min Respiratory Rate 2022-03-25 09:24:00 18.00 /min BP Systolic 2020-11-21 17:09:00 131 mm[Hg] BP Diastolic 2020-11-21 17:09:00 78 mm[Hg] Weight Measured 2020-11-21 17:09:00 273.20 pounds Height Measured 2020-11-21 17:09:00 63.00 inches Body Temperature 2020-11-21 17:09:00 98.30 degrees Heart Rate 2020-11-21 17:09:00 101.00 /min Respiratory Rate 2020-11-21 17:09:00 16.00 /min BP Systolic 2020-04-22 11:15:00 124 mm[Hg] BP Diastolic 2020-04-22 11:15:00 87 mm[Hg] Weight Measured 2020-04-22 11:15:00 247.80 pounds Height Measured 2020-04-22 11:15:00 63.00 inches Body Temperature 2020-04-22 11:15:00 98.60 degrees Heart Rate 2020-04-22 11:15:00 82.00 /min Respiratory Rate 2020-04-22 11:15:00 16.00 /min BP Systolic 2020-03-29 13:36:00 124 mm[Hg] BP Diastolic 2020-03-29 13:36:00 79 mm[Hg] Weight Measured 2020-03-29 13:36:00 253.60 pounds Height Measured 2020-03-29 13:36:00 63.00 inches Body Temperature 2020-03-29 13:36:00 99.10 degrees Heart Rate 2020-03-29 13:36:00 95.00 /min Respiratory Rate 2020-03-29 13:36:00 Respiratory Rate 2020-03-06 08:52:00 17.00 /min BP Systolic 2020-03-06 08:52:00 137 mm[Hg] BP Diastolic 2020-03-06 08:52:00 86 mm[Hg] Weight Measured 2020-03-06 08:52:00 255.00 pounds Height Measured 2020-03-06 08:52:00 63.00 inches Body Temperature 2020-03-06 08:52:00 98.90 degrees Heart Rate 2020-03-06 08:52:00 84.00 /min BP Systolic 2020-02-07 14:20:00 124 mm[Hg] BP Diastolic 2020-02-07 14:20:00 84 mm[Hg] Weight Measured 2020-02-07 14:20:00 252.80 pounds Height Measured 2020-02-07 14:20:00 63.00 inches Body Temperature 2020-02-07 14:20:00 97.90 degrees Heart Rate 2020-02-07 14:20:00 92.00 /min Respiratory Rate 2020-02-07 14:20:00 17.00 /min BP Systolic 2020-01-31 15:00:00 139 mm[Hg] BP Diastolic 2020-01-31 15:00:00 95 mm[Hg] Weight Measured 2020-01-31 15:00:00 253.00 pounds Height Measured 2020-01-31 15:00:00 63.00 inches Body Temperature 2020-01-31 15:00:00 98.70 degrees Heart Rate 2020-01-31 15:00:00 102.00 /min Respiratory Rate 2020-01-31 15:00:00 BP Systolic 2019-09-13 15:12:00 126 mm[Hg] BP Diastolic 2019-09-13 15:12:00 88 mm[Hg] Weight Measured 2019-09-13 15:12:00 251.60 pounds Height Measured 2019-09-13 15:12:00 63.00 inches Body Temperature 2019-09-13 15:12:00 97.60 degrees Heart Rate 2019-09-13 15:12:00 98.00 /min Respiratory Rate 2019-09-13 15:12:00 18.00 /min BP Systolic 2019-07-19 09:24:00 135 mm[Hg] BP Diastolic 2019-07-19 09:24:00 87 mm[Hg] Weight Measured 2019-07-19 09:24:00 244.60 pounds Height Measured 2019-07-19 09:24:00 63.00 inches Body Temperature 2019-07-19 09:24:00 98.30 degrees Heart Rate 2019-07-19 09:24:00 78.00 /min Respiratory Rate 2019-07-19 09:24:00 18.00 /min BP Systolic 2019-04-19 13:25:00 121 mm[Hg] BP Diastolic 2019-04-19 13:25:00 86 mm[Hg] Weight Measured 2019-04-19 13:25:00 242.20 pounds Height Measured 2019-04-19 13:25:00 63.00 inches Body Temperature 2019-04-19 13:25:00 98.80 degrees Heart Rate 2019-04-19 13:25:00 103.00 /min Respiratory Rate 2019-04-19 13:25:00 18.00 /min Procedures This patient has no known procedures. Plan of Care Planned Activity Planned Date Details Comments Source Goal Plan of Care Note [code = 74450-3] Goal Plan of Care Note [code = 12131-4] Goal Plan of Care Note [code = 24549-3] Goal Plan of Care Note [code = 37871-6] Goal Plan of Care Note [code = 09142-1] Goal Plan of Care Note [code = 60327-1] Goal Plan of Care Note [code = 79183-8] Goal Plan of Care Note [code = 61964-4] Goal Plan of Care Note [code = 68755-4] Goal Plan of Care Note [code = 58363-5] Goal Plan of Care Note [code = 04453-1] Goal Plan of Care Note [code = 84697-3] Goal Plan of Care Note [code = 90422-4] Goal Plan of Care Note [code = 25356-1] Goal Plan of Care Note [code = 95723-6] Goal Plan of Care Note [code = 89588-2] Goal Plan of Care Note [code = 09802-3] Goal Plan of Care Note [code = 35683-2] Goal Plan of Care Note [code = 21017-7] Goal Plan of Care Note [code = 89102-0] Goal Plan of Care Note [code = 68103-6] Goal Plan of Care Note [code = 73853-8] Goal Plan of Care Note [code = 07557-3] Goal Plan of Care Note [code = 04038-2] Goal Plan of Care Note [code = 18425-4] Goal Plan of Care Note [code = 44231-3] Goal Plan of Care Note [code = 68736-3] Goal Plan of Care Note [code = 88668-6] Goal Plan of Care Note [code = 81169-9] Goal Plan of Care Note [code = 61578-3] Goal Plan of Care Note [code = 66774-4] Goal Plan of Care Note [code = 63281-9] Goal Plan of Care Note [code = 50555-7] Goal Plan of Care Note [code = 16146-7] Goal Plan of Care Note [code = 50729-2] Goal Plan of Care Note [code = 58155-5] Goal Plan of Care Note [code = 88839-4] Goal Plan of Care Note [code = 02432-2] Goal Plan of Care Note [code = 72888-7] Goal Plan of Care Note [code = 28093-9] Goal Plan of Care Note [code = 61464-3] Encounters Start End Encounter Admission Attending Care Care Encounter Source Date/Time Date/Time Type Type Clinicians Facility Department ID 2022-07-18 2022-07-18 Outpatient ANTONIO SFA [id number] [place] 12:54:59 12:54:59 1126 Stella Dejesus 2022-07-18 2022-07-18 Outpatient [id number] 00:00:00 00:00:00 Visit [id number] 1558-08-03 2022-03-25 Outpatient [id number] 00:00:00 00:00:00 Visit [id number] Results Test Description Test Time Test Comments Results Result Comments Source COMPREHENSIVE METABOLIC PANEL 2021-11-11 04:06:40 Test Item Value Reference Range Interpretation Comme nts GLUCOSE (test code = 2217) 100 MG/DL 70-99 H BUN (test code = 2208) 8 MG/DL 6-20 CREATININE (test code = 0.63 MG/DL 0.60-1.30 2213) eGFR (2020 CKD-EPI) (test 116 ML/MIN/1.73 >60 code = 05597) CALC BUN/CREAT (test code = 13 RATIO 6-28 2234) SODIUM (test code = 2231) 144 MEQ/L 133-146 POTASSIUM (test code = 2228) 4.1 MEQ/L 3.5-5.4 CHLORIDE (test code = 2215) 101 MEQ/L 95-107 CARBON DIOXIDE (test code = 27 MEQ/L 19-31 2205) CALCIUM (test code = 2209) 9.6 MG/DL 8.5-10.5 PROTEIN, TOTAL (test code = 7.3 G/DL 6.1-8.3 2228) ALBUMIN (test code = 2201) 4.0 G/DL 3.5-5.2 CALC GLOBULIN (test code = 3.3 G/DL 1.9-3.7 2239) CALC A/G RATIO (test code = 1.2 RATIO 1.0-2.6 2234) BILIRUBIN, TOTAL (test code 0.3 MG/DL See_Comment [Automated message] The = 2207) system which ge nerated this result transmit kalyn reference range : <=1.2. The reference range was not used to interpr et this result as armand l/abnormal. ALKALINE PHOSPHATASE (test 86 U/L 40-112 code = 2204) AST (test code = 2218) 16 U/L 9-40 ALT (test code = 2219) 26 U/L 5-40 LIPID [id number] 04:06:40 Test Item Value Reference Range Interpretation Comments CHOLESTEROL (test 178 MG/DL <200 code = 2210) TRIGLYCERIDES (test 127 MG/DL <150 code = 2232) HDL CHOLESTEROL (test 44 MG/DL >39 code = 2220) CALC LDL CHOL (test 110 MG/DL <100 H NOTE: C ALCULATED LDL code = 2237) IS BASED ON NANDA-DICKEY METHOD WHICHINCLUDES ADJUSTABLE TRIGLYCERIDE:VL DL CHOLESTEROL RAT IO.THIS FACTOR VARIES B Y MEASURED TRIGLY CERIDE AND NON-HDLCHOL ESTEROL CONCENTRATIONS WITH INCREASED CALCU LATED LDL SEENIN HIGH ER TRIGLYCERIDE OR LOWER NON-HDL SPECIME NS. FOR MOREINFORMATION , SEE CLIENT ANNOUNCE MENT AT [email or web address] RISK [email or web address] LDL/HDL 2.50 RATIO <3.22 UNLESS OTHERWISE (test code = 2238) INDICATED , ALL TESTING PERFORMED [facility], [facility]. [address] [place] [id number] [place] [address] DIRECTOR: JAMIE LOCO M.D. IA NUMBER [id number] CAP ACCREDITATION N O. [id number] COMPREHENSIVE METABOLIC [id number] 00:00:00 Test Item Value Reference Range Interpretation Comments GLUCOSE (test code = 2217) 100 MG/DL BUN (test code = 2208) 8 MG/DL CREATININE (test code = 2214) 0.63 MG/DL eGFR (2020 CKD-EPI) (test 116 ML/MIN/1.73 code = 13239) CALC BUN/CREAT (test code = 13 RATIO 2235) SODIUM (test code = 2231) 144 MEQ/L POTASSIUM (test code = 2228) 4.1 MEQ/L CHLORIDE (test code = 2215) 101 MEQ/L CARBON DIOXIDE (test code = 27 MEQ/L 2205) CALCIUM (test code = 2209) 9.6 MG/DL PROTEIN, TOTAL (test code = 7.3 G/DL 2228) ALBUMIN (test code = 2201) 4.0 G/DL CALC GLOBULIN (test code = 3.3 G/DL 2240) CALC A/G RATIO (test code = 1.2 RATIO 2234) BILIRUBIN, TOTAL (test code = 0.3 MG/DL 2206) ALKALINE PHOSPHATASE (test 86 U/L code = 2204) AST (test code = 2218) 16 U/L ALT (test code = 2219) 26 U/L LIPID [id number] 00:00:00 Test Item Value Reference Range Interpretation Comments CHOLESTEROL (test code = 2210) 178 MG/DL TRIGLYCERIDES (test code = 2232) 127 MG/DL HDL CHOLESTEROL (test code = 2220) 44 MG/DL CALC LDL CHOL (test code = 2237) 110 MG/DL RISK RATIO LDL/HDL (test code = 2.50 RATIO 2238) COMPREHENSIVE METABOLIC [id number] 00:00:00 Test Item Value Reference Range Interpretation Comments GLUCOSE (test code = 2217) 100 MG/DL BUN (test code = 2208) 8 MG/DL CREATININE (test code = 2214) 0.63 MG/DL eGFR (2020 CKD-EPI) (test 116 ML/MIN/1.73 code = 05441) CALC BUN/CREAT (test code = 13 RATIO 2235) SODIUM (test code = 2231) 144 MEQ/L POTASSIUM (test code = 2228) 4.1 MEQ/L CHLORIDE (test code = 2215) 101 MEQ/L CARBON DIOXIDE (test code = 27 MEQ/L 2205) CALCIUM (test code = 2209) 9.6 MG/DL PROTEIN, TOTAL (test code = 7.3 G/DL 2228) ALBUMIN (test code = 2201) 4.0 G/DL CALC GLOBULIN (test code = 3.3 G/DL 2240) CALC A/G RATIO (test code = 1.2 RATIO 2234) BILIRUBIN, TOTAL (test code = 0.3 MG/DL 2206) ALKALINE PHOSPHATASE (test 86 U/L code = 2204) AST (test code = 2218) 16 U/L ALT (test code = 2219) 26 U/L COMPREHENSIVE METABOLIC [id number] 00:00:00 Test Item Value Reference Range Interpretation Comments GLUCOSE (test code = 2217) 100 MG/DL BUN (test code = 2208) 8 MG/DL CREATININE (test code = 2214) 0.63 MG/DL eGFR (2020 CKD-EPI) (test 116 ML/MIN/1.73 code = 50314) CALC BUN/CREAT (test code = 13 RATIO 2235) SODIUM (test code = 2231) 144 MEQ/L POTASSIUM (test code = 2228) 4.1 MEQ/L CHLORIDE (test code = 2215) 101 MEQ/L CARBON DIOXIDE (test code = 27 MEQ/L 2205) CALCIUM (test code = 2209) 9.6 MG/DL PROTEIN, TOTAL (test code = 7.3 G/DL 2228) ALBUMIN (test code = 2201) 4.0 G/DL CALC GLOBULIN (test code = 3.3 G/DL 2239) CALC A/G RATIO (test code = 1.2 RATIO 2233) BILIRUBIN, TOTAL (test code = 0.3 MG/DL 2206) ALKALINE PHOSPHATASE (test 86 U/L code = 2204) AST (test code = 2218) 16 U/L ALT (test code = 2219) 26 U/L LIPID [id number] 00:00:00 Test Item Value Reference Range Interpretation Comments CHOLESTEROL (test code = 2210) 178 MG/DL TRIGLYCERIDES (test code = 2232) 127 MG/DL HDL CHOLESTEROL (test code = 2220) 44 MG/DL CALC LDL CHOL (test code = 2237) 110 MG/DL RISK RATIO LDL/HDL (test code = 2.50 RATIO 2238) LIPID [id number] 00:00:00 Test Item Value Reference Range Interpretation Comments CHOLESTEROL (test code = 2210) 178 MG/DL TRIGLYCERIDES (test code = 2232) 127 MG/DL HDL CHOLESTEROL (test code = 2220) 44 MG/DL CALC LDL CHOL (test code = 2237) 110 MG/DL RISK RATIO LDL/HDL (test code = 2.50 RATIO 2238) LIPID [id number] 00:00:00 Test Item Value Reference Range Interpretation Comments CHOLESTEROL (test code = 2210) 179 MG/DL TRIGLYCERIDES (test code = 2232) 124 MG/DL HDL CHOLESTEROL (test code = 2220) 44 MG/DL CALC LDL CHOL (test code = 2237) 112 MG/DL RISK RATIO LDL/HDL (test code = 2.55 RATIO 2238) LIPID [id number] 00:00:00 Test Item Value Reference Range Interpretation Comments CHOLESTEROL (test code = 2210) 179 MG/DL TRIGLYCERIDES (test code = 2232) 124 MG/DL HDL CHOLESTEROL (test code = 2220) 44 MG/DL CALC LDL CHOL (test code = 2237) 112 MG/DL RISK RATIO LDL/HDL (test code = 2.55 RATIO 2238) COMPREHENSIVE METABOLIC [id number] 00:00:00 Test Item Value Reference Range Interpretation Comments GLUCOSE (test code = 2217) 95 MG/DL BUN (test code = 2208) 8 MG/DL CREATININE (test code = 2214) 0.68 MG/DL eGFR AMER. (test code 130 ML/MIN/1.73 = 18518) eGFR NON- AMER. (test 112 ML/MIN/1.73 code = 57921) CALC BUN/CREAT (test code = 12 RATIO 2235) SODIUM (test code = 2231) 139 MEQ/L POTASSIUM (test code = 2228) 4.4 MEQ/L CHLORIDE (test code = 2215) 100 MEQ/L CARBON DIOXIDE (test code = 23 MEQ/L 2205) CALCIUM (test code = 2209) 9.6 MG/DL PROTEIN, TOTAL (test code = 7.3 G/DL 222) ALBUMIN (test code = 2201) 4.3 G/DL CALC GLOBULIN (test code = 3.0 G/DL 2240) CALC A/G RATIO (test code = 1.4 RATIO 2234) BILIRUBIN, TOTAL (test code = <0.2 MG/DL 220) ALKALINE PHOSPHATASE (test 90 U/L code = 2204) AST (test code = 2218) 20 U/L ALT (test code = 2219) 24 U/L COMPREHENSIVE METABOLIC [id number] 00:00:00 Test Item Value Reference Range Interpretation Comments GLUCOSE (test code = 2217) 95 MG/DL BUN (test code = 2208) 8 MG/DL CREATININE (test code = 2214) 0.68 MG/DL eGFR AMER. (test code 130 ML/MIN/1.73 = 51785) eGFR NON- AMER. (test 112 ML/MIN/1.73 code = 09397) CALC BUN/CREAT (test code = 12 RATIO 5) SODIUM (test code = 2231) 139 MEQ/L POTASSIUM (test code = 2228) 4.4 MEQ/L CHLORIDE (test code = 2215) 100 MEQ/L CARBON DIOXIDE (test code = 23 MEQ/L 2205) CALCIUM (test code = 2209) 9.6 MG/DL PROTEIN, TOTAL (test code = 7.3 G/DL 2228) ALBUMIN (test code = 220) 4.3 G/DL CALC GLOBULIN (test code = 3.0 G/DL 2239) CALC A/G RATIO (test code = 1.4 RATIO 2233) BILIRUBIN, TOTAL (test code = <0.2 MG/DL 2206) ALKALINE PHOSPHATASE (test 90 U/L code = 220) AST (test code = 2218) 20 U/L ALT (test code = 2219) 24 U/L THYROID II PROFILE (T3U, T4, T7, TSH)2021-05-12 00:00:00 Test Item Value Reference Range Interpretation Comments T-UPTAKE (test code = 2817) 33.1 % THYROX. BIND. CAPAC. (test code 1.0 = 79123) T4 (THYROXINE) (test code = 4.7 UG/DL 2819) CORRECTED T4 (FTI) (test code = 4.7 UG/DL 2820) TSH, THIRD GENERATION (test code 1.570 UIU/ML = 2821) THYROID II PROFILE (T3U, T4, T7, TSH)2021-05-12 00:00:00 Test Item Value Reference Range Interpretation Comments T-UPTAKE (test code = 2817) 33.1 % THYROX. BIND. CAPAC. (test code 1.0 = 56509) T4 (THYROXINE) (test code = 4.7 UG/DL 2819) CORRECTED T4 (FTI) (test code = 4.7 UG/DL 2820) TSH, THIRD GENERATION (test code 1.570 UIU/ML = 2821) LIPID [id number] 00:00:00 Test Item Value Reference Range Interpretation Comments CHOLESTEROL (test code = 2210) 179 MG/DL TRIGLYCERIDES (test code = 2232) 124 MG/DL HDL CHOLESTEROL (test code = 2220) 44 MG/DL CALC LDL CHOL (test code = 2237) 112 MG/DL RISK RATIO LDL/HDL (test code = 2.55 RATIO 2238) COMPREHENSIVE METABOLIC [id number] 00:00:00 Test Item Value Reference Range Interpretation Comments GLUCOSE (test code = 2217) 95 MG/DL BUN (test code = 2208) 8 MG/DL CREATININE (test code = 2214) 0.68 MG/DL eGFR AMER. (test code 130 ML/MIN/1.73 = 89862) eGFR NON- AMER. (test 112 ML/MIN/1.73 code = 01412) CALC BUN/CREAT (test code = 12 RATIO 2235) SODIUM (test code = 2231) 139 MEQ/L POTASSIUM (test code = 2228) 4.4 MEQ/L CHLORIDE (test code = 2215) 100 MEQ/L CARBON DIOXIDE (test code = 23 MEQ/L 2205) CALCIUM (test code = 2209) 9.6 MG/DL PROTEIN, TOTAL (test code = 7.3 G/DL 2228) ALBUMIN (test code = 2201) 4.3 G/DL CALC GLOBULIN (test code = 3.0 G/DL 2240) CALC A/G RATIO (test code = 1.4 RATIO 4) BILIRUBIN, TOTAL (test code = <0.2 MG/DL 2206) ALKALINE PHOSPHATASE (test 90 U/L code = 2204) AST (test code = 2218) 20 U/L ALT (test code = 2219) 24 U/L THYROID II PROFILE (T3U, T4, T7, TSH)2021-05-12 00:00:00 Test Item Value Reference Range Interpretation Comments T-UPTAKE (test code = 2817) 33.1 % THYROX. BIND. CAPAC. (test code 1.0 = 45748) T4 (THYROXINE) (test code = 4.7 UG/DL 2819) CORRECTED T4 (FTI) (test code = 4.7 UG/DL 2820) TSH, THIRD GENERATION (test code 1.570 UIU/ML = 2821) CBC W/AUTO [id number] 00:00:00 Test Item Value Reference Range Interpretation Comments WBC (test code = 1001) 10.3 K/UL RBC (test code = 1002) 5.10 M/UL HEMOGLOBIN (test code = 1003) 13.2 G/DL HEMATOCRIT (test code = 1004) 41.6 % MCV (test code = 1005) 81.6 fL MCH (test code = 1006) 25.9 PG MCHC (test code = 1007) 31.7 G/DL RDW (test code = 1038) 14.2 % NEUTROPHILS (test code = 1008) 69.9 % LYMPHOCYTES (test code = 1010) 20.0 % MONOCYTES (test code = 1011) 6.4 % EOSINOPHILS (test code = 1012) 2.7 % BASOPHILS (test code = 1013) 0.8 % IMMATURE GRANULOCYTES (test 0.2 % code = 1036) NUCLEATED RBCS (test code = 0.0 /100WBC'S 1065) PLATELET COUNT (test code = 445 K/UL 1015) ABSOLUTE NEUTROPHILS (test code 7.17 K/UL = 1066) ABSOLUTE LYMPHOCYTES (test code 2.05 K/UL = 1067) ABSOLUTE MONOCYTES (test code = 0.66 K/UL 1068) ABSOLUTE EOSINOPHILS (test code 0.28 K/UL = 1040) ABSOLUTE BASOPHILS (test code = 0.08 K/UL 1069) ABS IMMATURE GRANULOCYTES (test 0.02 K/UL code = 1020) ABS NUCLEATED RBCS (test code = 0.00 K/UL 63368) CBC W/AUTO [id number] 00:00:00 Test Item Value Reference Range Interpretation Comments WBC (test code = 1001) 10.3 K/UL RBC (test code = 1002) 5.10 M/UL HEMOGLOBIN (test code = 1003) 13.2 G/DL HEMATOCRIT (test code = 1004) 41.6 % MCV (test code = 1005) 81.6 fL MCH (test code = 1006) 25.9 PG MCHC (test code = 1007) 31.7 G/DL RDW (test code = 1038) 14.2 % NEUTROPHILS (test code = 1008) 69.9 % LYMPHOCYTES (test code = 1010) 20.0 % MONOCYTES (test code = 1011) 6.4 % EOSINOPHILS (test code = 1012) 2.7 % BASOPHILS (test code = 1013) 0.8 % IMMATURE GRANULOCYTES (test 0.2 % code = 1036) NUCLEATED RBCS (test code = 0.0 /100WBC'S 1065) PLATELET COUNT (test code = 445 K/UL 1015) ABSOLUTE NEUTROPHILS (test code 7.17 K/UL = 1066) ABSOLUTE LYMPHOCYTES (test code 2.05 K/UL = 1067) ABSOLUTE MONOCYTES (test code = 0.66 K/UL 1068) ABSOLUTE EOSINOPHILS (test code 0.28 K/UL = 1040) ABSOLUTE BASOPHILS (test code = 0.08 K/UL 1069) ABS IMMATURE GRANULOCYTES (test 0.02 K/UL code = 1020) ABS NUCLEATED RBCS (test code = 0.00 K/UL 86908) HEMOGLOBIN [id number] 00:00:00 Test Item Value Reference Range Interpretation Comments HEMOGLOBIN A1c (test code = 01651) 6.0 % HEMOGLOBIN [id number] 00:00:00 Test Item Value Reference Range Interpretation Comments HEMOGLOBIN A1c (test code = 86763) 6.0 % CBC W/AUTO [id number] 00:00:00 Test Item Value Reference Range Interpretation Comments WBC (test code = 1001) 10.3 K/UL RBC (test code = 1002) 5.10 M/UL HEMOGLOBIN (test code = 1003) 13.2 G/DL HEMATOCRIT (test code = 1004) 41.6 % MCV (test code = 1005) 81.6 fL MCH (test code = 1006) 25.9 PG MCHC (test code = 1007) 31.7 G/DL RDW (test code = 1038) 14.2 % NEUTROPHILS (test code = 1008) 69.9 % LYMPHOCYTES (test code = 1010) 20.0 % MONOCYTES (test code = 1011) 6.4 % EOSINOPHILS (test code = 1012) 2.7 % BASOPHILS (test code = 1013) 0.8 % IMMATURE GRANULOCYTES (test 0.2 % code = 1036) NUCLEATED RBCS (test code = 0.0 /100WBC'S 1065) PLATELET COUNT (test code = 445 K/UL 1015) ABSOLUTE NEUTROPHILS (test code 7.17 K/UL = 1066) ABSOLUTE LYMPHOCYTES (test code 2.05 K/UL = 1067) ABSOLUTE MONOCYTES (test code = 0.66 K/UL 1068) ABSOLUTE EOSINOPHILS (test code 0.28 K/UL = 1040) ABSOLUTE BASOPHILS (test code = 0.08 K/UL 1069) ABS IMMATURE GRANULOCYTES (test 0.02 K/UL code = 1020) ABS NUCLEATED RBCS (test code = 0.00 K/UL 02891) CBC W/AUTO [id number] 00:00:00 Test Item Value Reference Range Interpretation Comments WBC (test code = 1001) 10.3 K/UL RBC (test code = 1002) 5.10 M/UL HEMOGLOBIN (test code = 1003) 13.2 G/DL HEMATOCRIT (test code = 1004) 41.6 % MCV (test code = 1005) 81.6 fL MCH (test code = 1006) 25.9 PG MCHC (test code = 1007) 31.7 G/DL RDW (test code = 1038) 14.2 % NEUTROPHILS (test code = 1008) 69.9 % LYMPHOCYTES (test code = 1010) 20.0 % MONOCYTES (test code = 1011) 6.4 % EOSINOPHILS (test code = 1012) 2.7 % BASOPHILS (test code = 1013) 0.8 % IMMATURE GRANULOCYTES (test 0.2 % code = 1036) NUCLEATED RBCS (test code = 0.0 /100WBC'S 1065) PLATELET COUNT (test code = 445 K/UL 1015) ABSOLUTE NEUTROPHILS (test code 7.17 K/UL = 1066) ABSOLUTE LYMPHOCYTES (test code 2.05 K/UL = 1067) ABSOLUTE MONOCYTES (test code = 0.66 K/UL 1068) ABSOLUTE EOSINOPHILS (test code 0.28 K/UL = 1040) ABSOLUTE BASOPHILS (test code = 0.08 K/UL 1069) ABS IMMATURE GRANULOCYTES (test 0.02 K/UL code = 1020) ABS NUCLEATED RBCS (test code = 0.00 K/UL 57726) CBC W/AUTO [id number] 00:00:00 Test Item Value Reference Range Interpretation Comments WBC (test code = 1001) 10.3 K/UL RBC (test code = 1002) 5.10 M/UL HEMOGLOBIN (test code = 1003) 13.2 G/DL HEMATOCRIT (test code = 1004) 41.6 % MCV (test code = 1005) 81.6 fL MCH (test code = 1006) 25.9 PG MCHC (test code = 1007) 31.7 G/DL RDW (test code = 1038) 14.2 % NEUTROPHILS (test code = 1008) 69.9 % LYMPHOCYTES (test code = 1010) 20.0 % MONOCYTES (test code = 1011) 6.4 % EOSINOPHILS (test code = 1012) 2.7 % BASOPHILS (test code = 1013) 0.8 % IMMATURE GRANULOCYTES (test 0.2 % code = 1036) NUCLEATED RBCS (test code = 0.0 /100WBC'S 1065) PLATELET COUNT (test code = 445 K/UL 1015) ABSOLUTE NEUTROPHILS (test code 7.17 K/UL = 1066) ABSOLUTE LYMPHOCYTES (test code 2.05 K/UL = 1067) ABSOLUTE MONOCYTES (test code = 0.66 K/UL 1068) ABSOLUTE EOSINOPHILS (test code 0.28 K/UL = 1040) ABSOLUTE BASOPHILS (test code = 0.08 K/UL 1069) ABS IMMATURE GRANULOCYTES (test 0.02 K/UL code = 1020) ABS NUCLEATED RBCS (test code = 0.00 K/UL 56254) HEMOGLOBIN [id number] 00:00:00 Test Item Value Reference Range Interpretation Comments HEMOGLOBIN A1c (test code = 10703) 6.0 % HEMOGLOBIN [id number] 00:00:00 Test Item Value Reference Range Interpretation Comments HEMOGLOBIN A1c (test code = 10427) 6.0 % HEMOGLOBIN [id number] 00:00:00 Test Item Value Reference Range Interpretation Comments HEMOGLOBIN A1c (test code = 22757) 6.0 % CBC W/AUTO [id number] 00:00:00 Test Item Value Reference Range Interpretation Comments WBC (test code = 1001) 10.8 K/UL RBC (test code = 1002) 4.45 M/UL HEMOGLOBIN (test code = 1003) 11.9 G/DL HEMATOCRIT (test code = 1004) 34.9 % MCV (test code = 1005) 78.4 fL MCH (test code = 1006) 26.7 PG MCHC (test code = 1007) 34.1 G/DL RDW (test code = 1038) 13.0 % NEUTROPHILS (test code = 1008) 73.4 % LYMPHOCYTES (test code = 1010) 16.4 % MONOCYTES (test code = 1011) 6.8 % EOSINOPHILS (test code = 1012) 2.7 % BASOPHILS (test code = 1013) 0.7 % PLATELET COUNT (test code = 1015) 455 K/UL CBC W/AUTO [id number] 00:00:00 Test Item Value Reference Range Interpretation Comments WBC (test code = 1001) 10.8 K/UL RBC (test code = 1002) 4.45 M/UL HEMOGLOBIN (test code = 1003) 11.9 G/DL HEMATOCRIT (test code = 1004) 34.9 % MCV (test code = 1005) 78.4 fL MCH (test code = 1006) 26.7 PG MCHC (test code = 1007) 34.1 G/DL RDW (test code = 1038) 13.0 % NEUTROPHILS (test code = 1008) 73.4 % LYMPHOCYTES (test code = 1010) 16.4 % MONOCYTES (test code = 1011) 6.8 % EOSINOPHILS (test code = 1012) 2.7 % BASOPHILS (test code = 1013) 0.7 % PLATELET COUNT (test code = 1015) 455 K/UL CBC W/AUTO [id number] 00:00:00 Test Item Value Reference Range Interpretation Comments WBC (test code = 1001) 10.8 K/UL RBC (test code = 1002) 4.45 M/UL HEMOGLOBIN (test code = 1003) 11.9 G/DL HEMATOCRIT (test code = 1004) 34.9 % MCV (test code = 1005) 78.4 fL MCH (test code = 1006) 26.7 PG MCHC (test code = 1007) 34.1 G/DL RDW (test code = 1038) 13.0 % NEUTROPHILS (test code = 1008) 73.4 % LYMPHOCYTES (test code = 1010) 16.4 % MONOCYTES (test code = 1011) 6.8 % EOSINOPHILS (test code = 1012) 2.7 % BASOPHILS (test code = 1013) 0.7 % PLATELET COUNT (test code = 1015) 455 K/UL CBC W/AUTO [id number] 00:00:00 Test Item Value Reference Range Interpretation Comments WBC (test code = 1001) 10.8 K/UL RBC (test code = 1002) 4.45 M/UL HEMOGLOBIN (test code = 1003) 11.9 G/DL HEMATOCRIT (test code = 1004) 34.9 % MCV (test code = 1005) 78.4 fL MCH (test code = 1006) 26.7 PG MCHC (test code = 1007) 34.1 G/DL RDW (test code = 1038) 13.0 % NEUTROPHILS (test code = 1008) 73.4 % LYMPHOCYTES (test code = 1010) 16.4 % MONOCYTES (test code = 1011) 6.8 % EOSINOPHILS (test code = 1012) 2.7 % BASOPHILS (test code = 1013) 0.7 % PLATELET COUNT (test code = 1015) 455 K/UL CBC W/AUTO [id number] 00:00:00 Test Item Value Reference Range Interpretation Comments WBC (test code = 1001) 10.8 K/UL RBC (test code = 1002) 4.45 M/UL HEMOGLOBIN (test code = 1003) 11.9 G/DL HEMATOCRIT (test code = 1004) 34.9 % MCV (test code = 1005) 78.4 fL MCH (test code = 1006) 26.7 PG MCHC (test code = 1007) 34.1 G/DL RDW (test code = 1038) 13.0 % NEUTROPHILS (test code = 1008) 73.4 % LYMPHOCYTES (test code = 1010) 16.4 % MONOCYTES (test code = 1011) 6.8 % EOSINOPHILS (test code = 1012) 2.7 % BASOPHILS (test code = 1013) 0.7 % PLATELET COUNT (test code = 1015) 455 K/UL LIPID [id number] 00:00:00 Test Item Value Reference Range Interpretation Comments CHOLESTEROL (test code = 2210) 176 MG/DL TRIGLYCERIDES (test code = 2232) 135 MG/DL HDL CHOLESTEROL (test code = 2220) 43 MG/DL CALC LDL CHOL (test code = 2237) 108 MG/DL RISK RATIO LDL/HDL (test code = 2.51 RATIO 2238) [id number] 00:00:00 Test Item Value Reference Range Interpretation Comments TSH, THIRD GENERATION (test code 1.590 UIU/ML = 2821) [id number] 00:00:00 Test Item Value Reference Range Interpretation Comments TSH, THIRD GENERATION (test code 1.590 UIU/ML = 2821) [id number] 00:00:00 Test Item Value Reference Range Interpretation Comments TSH, THIRD GENERATION (test code 1.590 UIU/ML = 2821) CBC W/AUTO [id number] 00:00:00 Test Item Value Reference Range Interpretation Comments WBC (test code = 1001) 11.6 K/UL RBC (test code = 1002) 4.74 M/UL HEMOGLOBIN (test code = 1003) 12.6 G/DL HEMATOCRIT (test code = 1004) 37.6 % MCV (test code = 1005) 79.3 fL MCH (test code = 1006) 26.6 PG MCHC (test code = 1007) 33.5 G/DL RDW (test code = 1038) 13.9 % NEUTROPHILS (test code = 1008) 75.9 % LYMPHOCYTES (test code = 1010) 15.1 % MONOCYTES (test code = 1011) 5.7 % EOSINOPHILS (test code = 1012) 2.8 % BASOPHILS (test code = 1013) 0.5 % PLATELET COUNT (test code = 1015) 424 K/UL CBC W/AUTO [id number] 00:00:00 Test Item Value Reference Range Interpretation Comments WBC (test code = 1001) 11.6 K/UL RBC (test code = 1002) 4.74 M/UL HEMOGLOBIN (test code = 1003) 12.6 G/DL HEMATOCRIT (test code = 1004) 37.6 % MCV (test code = 1005) 79.3 fL MCH (test code = 1006) 26.6 PG MCHC (test code = 1007) 33.5 G/DL RDW (test code = 1038) 13.9 % NEUTROPHILS (test code = 1008) 75.9 % LYMPHOCYTES (test code = 1010) 15.1 % MONOCYTES (test code = 1011) 5.7 % EOSINOPHILS (test code = 1012) 2.8 % BASOPHILS (test code = 1013) 0.5 % PLATELET COUNT (test code = 1015) 424 K/UL HEMOGLOBIN [id number] 00:00:00 Test Item Value Reference Range Interpretation Comments HEMOGLOBIN A1c (test code = 88758) 5.5 % HEMOGLOBIN [id number] 00:00:00 Test Item Value Reference Range Interpretation Comments HEMOGLOBIN A1c (test code = 38423) 5.5 % LIPID [id number] 00:00:00 Test Item Value Reference Range Interpretation Comments CHOLESTEROL (test code = 2210) 176 MG/DL TRIGLYCERIDES (test code = 2232) 135 MG/DL HDL CHOLESTEROL (test code = 2220) 43 MG/DL CALC LDL CHOL (test code = 2237) 108 MG/DL RISK RATIO LDL/HDL (test code = 2.51 RATIO 2238) [id number] 00:00:00 Test Item Value Reference Range Interpretation Comments TSH, THIRD GENERATION (test code 1.590 UIU/ML = 2821) [id number] 00:00:00 Test Item Value Reference Range Interpretation Comments TSH, THIRD GENERATION (test code 1.590 UIU/ML = 2821) CBC W/AUTO [id number] 00:00:00 Test Item Value Reference Range Interpretation Comments WBC (test code = 1001) 11.6 K/UL RBC (test code = 1002) 4.74 M/UL HEMOGLOBIN (test code = 1003) 12.6 G/DL HEMATOCRIT (test code = 1004) 37.6 % MCV (test code = 1005) 79.3 fL MCH (test code = 1006) 26.6 PG MCHC (test code = 1007) 33.5 G/DL RDW (test code = 1038) 13.9 % NEUTROPHILS (test code = 1008) 75.9 % LYMPHOCYTES (test code = 1010) 15.1 % MONOCYTES (test code = 1011) 5.7 % EOSINOPHILS (test code = 1012) 2.8 % BASOPHILS (test code = 1013) 0.5 % PLATELET COUNT (test code = 1015) 424 K/UL CBC W/AUTO [id number] 00:00:00 Test Item Value Reference Range Interpretation Comments WBC (test code = 1001) 11.6 K/UL RBC (test code = 1002) 4.74 M/UL HEMOGLOBIN (test code = 1003) 12.6 G/DL HEMATOCRIT (test code = 1004) 37.6 % MCV (test code = 1005) 79.3 fL MCH (test code = 1006) 26.6 PG MCHC (test code = 1007) 33.5 G/DL RDW (test code = 1038) 13.9 % NEUTROPHILS (test code = 1008) 75.9 % LYMPHOCYTES (test code = 1010) 15.1 % MONOCYTES (test code = 1011) 5.7 % EOSINOPHILS (test code = 1012) 2.8 % BASOPHILS (test code = 1013) 0.5 % PLATELET COUNT (test code = 1015) 424 K/UL CBC W/AUTO [id number] 00:00:00 Test Item Value Reference Range Interpretation Comments WBC (test code = 1001) 11.6 K/UL RBC (test code = 1002) 4.74 M/UL HEMOGLOBIN (test code = 1003) 12.6 G/DL HEMATOCRIT (test code = 1004) 37.6 % MCV (test code = 1005) 79.3 fL MCH (test code = 1006) 26.6 PG MCHC (test code = 1007) 33.5 G/DL RDW (test code = 1038) 13.9 % NEUTROPHILS (test code = 1008) 75.9 % LYMPHOCYTES (test code = 1010) 15.1 % MONOCYTES (test code = 1011) 5.7 % EOSINOPHILS (test code = 1012) 2.8 % BASOPHILS (test code = 1013) 0.5 % PLATELET COUNT (test code = 1015) 424 K/UL HEMOGLOBIN [id number] 00:00:00 Test Item Value Reference Range Interpretation Comments HEMOGLOBIN A1c (test code = 65362) 5.5 % HEMOGLOBIN [id number] 00:00:00 Test Item Value Reference Range Interpretation Comments HEMOGLOBIN A1c (test code = 83865) 5.5 % HEMOGLOBIN [id number] 00:00:00 Test Item Value Reference Range Interpretation Comments HEMOGLOBIN A1c (test code = 25380) 5.5 % LIPID [id number] 00:00:00 Test Item Value Reference Range Interpretation Comments CHOLESTEROL (test code = 2210) 176 MG/DL TRIGLYCERIDES (test code = 2232) 135 MG/DL HDL CHOLESTEROL (test code = 2220) 43 MG/DL CALC LDL CHOL (test code = 2237) 108 MG/DL RISK RATIO LDL/HDL (test code = 2.51 RATIO 2238) PAP TEST, THINPREP, [id number] 00:00:00 Test Item Value Reference Range Interpretation Comments SOURCE: (test code = Cervical/Endocervical 8001) SLIDES: (test code = 1 8011) LMP: (test code = 8021) 01/10/2020 SPECIMEN ADEQUACY: (test (NOTE) code = 39262) INTERPRETATION: (test NILM/NO EPITH. code = 55427) ABNORMALITY;SEE BELOW FILM EDITOR SUPERVISOR: (test Malek code = 8101) SandraCT(ASCP) IAC LOCATION: (test code = (NOTE) 06756) CPT: (test code = 8140) (NOTE) VAGINAL PATHOGENS DNA [id number] 00:00:00 Test Item Value Reference Range Interpretation Comments [place] SPECIES (test code = ) NEGATIVE G. VAGINALIS (test code = ) NEGATIVE T. VAGINALIS (test code = ) NEGATIVE HPV HIGH RISK WITH GENOTYPE, [id number] 00:00:00 Test Item Value Reference Range Interpretation Comments HPV HIGH RISK INTERP (test code = NEGATIVE 25916) HPV 16 (test code = 40006) NEGATIVE HPV 18 (test code = 86688) NEGATIVE HPV, HR, OTHER GENOTYPES (test code NEGATIVE = 27451) PAP TEST, THINPREP, [id number] 00:00:00 Test Item Value Reference Range Interpretation Comments SOURCE: (test code = Cervical/Endocervical 8001) SLIDES: (test code = 1 8011) LMP: (test code = 8021) 01/10/2020 SPECIMEN ADEQUACY: (test (NOTE) code = 89072) INTERPRETATION: (test NILM/NO EPITH. code = 80471) ABNORMALITY;SEE BELOW FILM EDITOR SUPERVISOR: (test Malek code = 8101) JASON Flores(ASCP) IAC LOCATION: (test code = (NOTE) 36581) CPT: (test code = 8140) (NOTE) PAP TEST, THINPREP, [id number] 00:00:00 Test Item Value Reference Range Interpretation Comments SOURCE: (test code = Cervical/Endocervical 8001) SLIDES: (test code = 1 8011) LMP: (test code = 8021) 01/10/2020 SPECIMEN ADEQUACY: (test (NOTE) code = 83013) INTERPRETATION: (test NILM/NO EPITH. code = 14092) ABNORMALITY;SEE BELOW FILM EDITOR SUPERVISOR: (test Malek code = 8101) SandraCT(ASCP) IAC LOCATION: (test code = (NOTE) 89528) CPT: (test code = 8140) (NOTE) VAGINAL PATHOGENS DNA [id number] 00:00:00 Test Item Value Reference Range Interpretation Comments [place] SPECIES (test code = ) NEGATIVE G. VAGINALIS (test code = 64338) NEGATIVE T. VAGINALIS (test code = ) NEGATIVE VAGINAL PATHOGENS DNA [id number] 00:00:00 Test Item Value Reference Range Interpretation Comments [place] SPECIES (test code = ) NEGATIVE G. VAGINALIS (test code = 92530) NEGATIVE T. VAGINALIS (test code = ) NEGATIVE HPV HIGH RISK WITH GENOTYPE, [id number] 00:00:00 Test Item Value Reference Range Interpretation Comments HPV HIGH RISK INTERP (test code = NEGATIVE 83047) HPV 16 (test code = 98551) NEGATIVE HPV 18 (test code = 47545) NEGATIVE HPV, HR, OTHER GENOTYPES (test code NEGATIVE = 16331) HPV HIGH RISK WITH GENOTYPE, [id number] 00:00:00 Test Item Value Reference Range Interpretation Comments HPV HIGH RISK INTERP (test code = NEGATIVE 17326) HPV 16 (test code = 34972) NEGATIVE HPV 18 (test code = 20898) NEGATIVE HPV, HR, OTHER GENOTYPES (test code NEGATIVE = 36248) CBC W/AUTO [id number] 00:00:00 Test Item Value Reference Range Interpretation Comments WBC (test code = 1001) 13.5 K/UL RBC (test code = 1002) 4.92 M/UL HEMOGLOBIN (test code = 1003) 13.0 G/DL HEMATOCRIT (test code = 1004) 38.8 % MCV (test code = 1005) 78.9 fL MCH (test code = 1006) 26.4 PG MCHC (test code = 1007) 33.5 G/DL RDW (test code = 1038) 12.8 % NEUTROPHILS (test code = 1008) 74.1 % LYMPHOCYTES (test code = 1010) 16.1 % MONOCYTES (test code = 1011) 6.6 % EOSINOPHILS (test code = 1012) 2.5 % BASOPHILS (test code = 1013) 0.7 % PLATELET COUNT (test code = 1015) 404 K/UL CBC W/AUTO [id number] 00:00:00 Test Item Value Reference Range Interpretation Comments WBC (test code = 1001) 13.5 K/UL RBC (test code = 1002) 4.92 M/UL HEMOGLOBIN (test code = 1003) 13.0 G/DL HEMATOCRIT (test code = 1004) 38.8 % MCV (test code = 1005) 78.9 fL MCH (test code = 1006) 26.4 PG MCHC (test code = 1007) 33.5 G/DL RDW (test code = 1038) 12.8 % NEUTROPHILS (test code = 1008) 74.1 % LYMPHOCYTES (test code = 1010) 16.1 % MONOCYTES (test code = 1011) 6.6 % EOSINOPHILS (test code = 1012) 2.5 % BASOPHILS (test code = 1013) 0.7 % PLATELET COUNT (test code = 1015) 404 K/UL IRON BINDING CAPACITY AND IRON AND % [id number] 00:00:00 Test Item Value Reference Range Interpretation Comments IRON, SERUM (test code = 2222) 31 UG/DL UNSATURATED IBC (test code = 34769) 275 UG/DL CALC TOTAL IBC (test code = 2076) 306 UG/DL CALC % IRON SAT (test code = 2078) 10 % CBC W/AUTO [id number] 00:00:00 Test Item Value Reference Range Interpretation Comments WBC (test code = 1001) 13.5 K/UL RBC (test code = 1002) 4.92 M/UL HEMOGLOBIN (test code = 1003) 13.0 G/DL HEMATOCRIT (test code = 1004) 38.8 % MCV (test code = 1005) 78.9 fL MCH (test code = 1006) 26.4 PG MCHC (test code = 1007) 33.5 G/DL RDW (test code = 1038) 12.8 % NEUTROPHILS (test code = 1008) 74.1 % LYMPHOCYTES (test code = 1010) 16.1 % MONOCYTES (test code = 1011) 6.6 % EOSINOPHILS (test code = 1012) 2.5 % BASOPHILS (test code = 1013) 0.7 % PLATELET COUNT (test code = 1015) 404 K/UL CBC W/AUTO [id number] 00:00:00 Test Item Value Reference Range Interpretation Comments WBC (test code = 1001) 13.5 K/UL RBC (test code = 1002) 4.92 M/UL HEMOGLOBIN (test code = 1003) 13.0 G/DL HEMATOCRIT (test code = 1004) 38.8 % MCV (test code = 1005) 78.9 fL MCH (test code = 1006) 26.4 PG MCHC (test code = 1007) 33.5 G/DL RDW (test code = 1038) 12.8 % NEUTROPHILS (test code = 1008) 74.1 % LYMPHOCYTES (test code = 1010) 16.1 % MONOCYTES (test code = 1011) 6.6 % EOSINOPHILS (test code = 1012) 2.5 % BASOPHILS (test code = 1013) 0.7 % PLATELET COUNT (test code = 1015) 404 K/UL CBC W/AUTO [id number] 00:00:00 Test Item Value Reference Range Interpretation Comments WBC (test code = 1001) 13.5 K/UL RBC (test code = 1002) 4.92 M/UL HEMOGLOBIN (test code = 1003) 13.0 G/DL HEMATOCRIT (test code = 1004) 38.8 % MCV (test code = 1005) 78.9 fL MCH (test code = 1006) 26.4 PG MCHC (test code = 1007) 33.5 G/DL RDW (test code = 1038) 12.8 % NEUTROPHILS (test code = 1008) 74.1 % LYMPHOCYTES (test code = 1010) 16.1 % MONOCYTES (test code = 1011) 6.6 % EOSINOPHILS (test code = 1012) 2.5 % BASOPHILS (test code = 1013) 0.7 % PLATELET COUNT (test code = 1015) 404 K/UL IRON BINDING CAPACITY AND IRON AND % [id number] 00:00:00 Test Item Value Reference Range Interpretation Comments IRON, SERUM (test code = 2221) 31 UG/DL UNSATURATED IBC (test code = ) 275 UG/DL CALC TOTAL IBC (test code = 7) 306 UG/DL CALC % IRON SAT (test code = 2078) 10 % IRON BINDING CAPACITY AND IRON AND % [id number] 00:00:00 Test Item Value Reference Range Interpretation Comments IRON, SERUM (test code = 2221) 31 UG/DL UNSATURATED IBC (test code = 71776) 275 UG/DL CALC TOTAL IBC (test code = 7) 306 UG/DL CALC % IRON SAT (test code = 2078) 10 % IRON BINDING CAPACITY AND IRON AND % [id number] 00:00:00 Test Item Value Reference Range Interpretation Comments IRON, SERUM (test code = 2) 105 UG/DL UNSATURATED IBC (test code = 48945) 220 UG/DL CALC TOTAL IBC (test code = 2076) 325 UG/DL CALC % IRON SAT (test code = 2078) 32 % [id number] 00:00:00 Test Item Value Reference Range Interpretation Comments FERRITIN (test code = 2074) 44 NG/ML [id number] 00:00:00 Test Item Value Reference Range Interpretation Comments FERRITIN (test code = 2074) 44 NG/ML [id number] 00:00:00 Test Item Value Reference Range Interpretation Comments TRANSFERRIN (test code = 4936) 269 MG/DL [id number] 00:00:00 Test Item Value Reference Range Interpretation Comments TRANSFERRIN (test code = 4936) 269 MG/DL CBC W/AUTO [id number] 00:00:00 Test Item Value Reference Range Interpretation Comments WBC (test code = 1001) 12.4 K/UL RBC (test code = 1002) 4.93 M/UL HEMOGLOBIN (test code = 1003) 12.3 G/DL HEMATOCRIT (test code = 1004) 38.6 % MCV (test code = 1005) 78.3 fL MCH (test code = 1006) 24.9 PG MCHC (test code = 1007) 31.9 G/DL RDW (test code = 1038) 14.4 % NEUTROPHILS (test code = 1008) 75.0 % LYMPHOCYTES (test code = 1010) 16.3 % MONOCYTES (test code = 1011) 5.9 % EOSINOPHILS (test code = 1012) 2.3 % BASOPHILS (test code = 1013) 0.5 % PLATELET COUNT (test code = 1015) 415 K/UL CBC W/AUTO [id number] 00:00:00 Test Item Value Reference Range Interpretation Comments WBC (test code = 1001) 12.4 K/UL RBC (test code = 1002) 4.93 M/UL HEMOGLOBIN (test code = 1003) 12.3 G/DL HEMATOCRIT (test code = 1004) 38.6 % MCV (test code = 1005) 78.3 fL MCH (test code = 1006) 24.9 PG MCHC (test code = 1007) 31.9 G/DL RDW (test code = 1038) 14.4 % NEUTROPHILS (test code = 1008) 75.0 % LYMPHOCYTES (test code = 1010) 16.3 % MONOCYTES (test code = 1011) 5.9 % EOSINOPHILS (test code = 1012) 2.3 % BASOPHILS (test code = 1013) 0.5 % PLATELET COUNT (test code = 1015) 415 K/UL IRON BINDING CAPACITY AND IRON AND % [id number] 00:00:00 Test Item Value Reference Range Interpretation Comments IRON, SERUM (test code = 2222) 105 UG/DL UNSATURATED IBC (test code = 50759) 220 UG/DL CALC TOTAL IBC (test code = 2076) 325 UG/DL CALC % IRON SAT (test code = 2078) 32 % [id number] 00:00:00 Test Item Value Reference Range Interpretation Comments FERRITIN (test code = 2075) 44 NG/ML [id number] 00:00:00 Test Item Value Reference Range Interpretation Comments TRANSFERRIN (test code = 4936) 269 MG/DL CBC W/AUTO [id number] 00:00:00 Test Item Value Reference Range Interpretation Comments WBC (test code = 1001) 12.4 K/UL RBC (test code = 1002) 4.93 M/UL HEMOGLOBIN (test code = 1003) 12.3 G/DL HEMATOCRIT (test code = 1004) 38.6 % MCV (test code = 1005) 78.3 fL MCH (test code = 1006) 24.9 PG MCHC (test code = 1007) 31.9 G/DL RDW (test code = 1038) 14.4 % NEUTROPHILS (test code = 1008) 75.0 % LYMPHOCYTES (test code = 1010) 16.3 % MONOCYTES (test code = 1011) 5.9 % EOSINOPHILS (test code = 1012) 2.3 % BASOPHILS (test code = 1013) 0.5 % PLATELET COUNT (test code = 1015) 415 K/UL CBC W/AUTO [id number] 00:00:00 Test Item Value Reference Range Interpretation Comments WBC (test code = 1001) 12.4 K/UL RBC (test code = 1002) 4.93 M/UL HEMOGLOBIN (test code = 1003) 12.3 G/DL HEMATOCRIT (test code = 1004) 38.6 % MCV (test code = 1005) 78.3 fL MCH (test code = 1006) 24.9 PG MCHC (test code = 1007) 31.9 G/DL RDW (test code = 1038) 14.4 % NEUTROPHILS (test code = 1008) 75.0 % LYMPHOCYTES (test code = 1010) 16.3 % MONOCYTES (test code = 1011) 5.9 % EOSINOPHILS (test code = 1012) 2.3 % BASOPHILS (test code = 1013) 0.5 % PLATELET COUNT (test code = 1015) 415 K/UL CBC W/AUTO [id number] 00:00:00 Test Item Value Reference Range Interpretation Comments WBC (test code = 1001) 12.4 K/UL RBC (test code = 1002) 4.93 M/UL HEMOGLOBIN (test code = 1003) 12.3 G/DL HEMATOCRIT (test code = 1004) 38.6 % MCV (test code = 1005) 78.3 fL MCH (test code = 1006) 24.9 PG MCHC (test code = 1007) 31.9 G/DL RDW (test code = 1038) 14.4 % NEUTROPHILS (test code = 1008) 75.0 % LYMPHOCYTES (test code = 1010) 16.3 % MONOCYTES (test code = 1011) 5.9 % EOSINOPHILS (test code = 1012) 2.3 % BASOPHILS (test code = 1013) 0.5 % PLATELET COUNT (test code = 1015) 415 K/UL IRON BINDING CAPACITY AND IRON AND % [id number] 00:00:00 Test Item Value Reference Range Interpretation Comments IRON, SERUM (test code = 2222) 105 UG/DL UNSATURATED IBC (test code = 59921) 220 UG/DL CALC TOTAL IBC (test code = 7) 325 UG/DL CALC % IRON SAT (test code = 9) 32 % [id number] 00:00:00 Test Item Value Reference Range Interpretation Comments TSH, THIRD GENERATION (test code 2.010 UIU/ML = 2821) [id number] 00:00:00 Test Item Value Reference Range Interpretation Comments TSH, THIRD GENERATION (test code 2.010 UIU/ML = 2821) [id number] 00:00:00 Test Item Value Reference Range Interpretation Comments TSH, THIRD GENERATION (test code 2.010 UIU/ML = 2821) [id number] 00:00:00 Test Item Value Reference Range Interpretation Comments TSH, THIRD GENERATION (test code 2.010 UIU/ML = 2821) [id number] 00:00:00 Test Item Value Reference Range Interpretation Comments TSH, THIRD GENERATION (test code 2.010 UIU/ML = 2821) IRON BINDING CAPACITY AND IRON AND % [id number] 00:00:00 Test Item Value Reference Range Interpretation Comments IRON, SERUM (test code = 2222) 24 UG/DL UNSATURATED IBC (test code = 36433) 372 UG/DL CALC TOTAL IBC (test code = 2076) 396 UG/DL CALC % IRON SAT (test code = 2078) 6 % RETICULOCYTE [id number] 00:00:00 Test Item Value Reference Range Interpretation Comments RETICULOCYTE COUNT (test code = 1018) 0.9 % RETICULOCYTE [id number] 00:00:00 Test Item Value Reference Range Interpretation Comments RETICULOCYTE COUNT (test code = 1018) 0.9 % FOLATE, [id number] 00:00:00 Test Item Value Reference Range Interpretation Comments HEMATOCRIT (test code = 1004) 31.4 % FOLATE, RBC (test code = 2690) 1032 NG/ML FOLATE, [id number] 00:00:00 Test Item Value Reference Range Interpretation Comments HEMATOCRIT (test code = 1004) 31.4 % FOLATE, RBC (test code = 2690) 1032 NG/ML VITAMIN B 12 AND FOLIC [id number] 00:00:00 Test Item Value Reference Range Interpretation Comments VITAMIN B-12 (test code = 2840) 569 PG/ML FOLIC ACID (test code = 2695) 11.0 UG/L [id number] 00:00:00 Test Item Value Reference Range Interpretation Comments FERRITIN (test code = 2075) 7 NG/ML IRON BINDING CAPACITY AND IRON AND % [id number] 00:00:00 Test Item Value Reference Range Interpretation Comments IRON, SERUM (test code = 2222) 24 UG/DL UNSATURATED IBC (test code = 01037) 372 UG/DL CALC TOTAL IBC (test code = 7) 396 UG/DL CALC % IRON SAT (test code = 2078) 6 % RETICULOCYTE [id number] 00:00:00 Test Item Value Reference Range Interpretation Comments RETICULOCYTE COUNT (test code = 1018) 0.9 % RETICULOCYTE [id number] 00:00:00 Test Item Value Reference Range Interpretation Comments RETICULOCYTE COUNT (test code = 1018) 0.9 % FOLATE, [id number] 00:00:00 Test Item Value Reference Range Interpretation Comments HEMATOCRIT (test code = 1004) 31.4 % FOLATE, RBC (test code = 2690) 1032 NG/ML VITAMIN B 12 AND FOLIC [id number] 00:00:00 Test Item Value Reference Range Interpretation Comments VITAMIN B-12 (test code = 2840) 569 PG/ML FOLIC ACID (test code = 2695) 11.0 UG/L VITAMIN B 12 AND FOLIC [id number] 00:00:00 Test Item Value Reference Range Interpretation Comments VITAMIN B-12 (test code = 2840) 569 PG/ML FOLIC ACID (test code = 2695) 11.0 UG/L [id number] 00:00:00 Test Item Value Reference Range Interpretation Comments FERRITIN (test code = 2075) 7 NG/ML [id number] 00:00:00 Test Item Value Reference Range Interpretation Comments FERRITIN (test code = 2075) 7 NG/ML IRON BINDING CAPACITY AND IRON AND % [id number] 00:00:00 Test Item Value Reference Range Interpretation Comments IRON, SERUM (test code = 2) 24 UG/DL UNSATURATED IBC (test code = ) 372 UG/DL CALC TOTAL IBC (test code = 2076) 396 UG/DL CALC % IRON SAT (test code = 2078) 6 % LIPID [id number] 00:00:00 Test Item Value Reference Range Interpretation Comments CHOLESTEROL (test code = 2210) 155 MG/DL TRIGLYCERIDES (test code = 2232) 116 MG/DL HDL CHOLESTEROL (test code = 2220) 45 MG/DL CALC LDL CHOL (test code = 2237) 87 MG/DL RISK RATIO LDL/HDL (test code = 1.93 RATIO 2238) COMPREHENSIVE METABOLIC [id number] 00:00:00 Test Item Value Reference Range Interpretation Comments GLUCOSE (test code = 2217) 85 MG/DL BUN (test code = 2208) 10 MG/DL CREATININE (test code = 2214) 0.78 MG/DL eGFR AMER. (test code 114 ML/MIN/1.73 = 24120) eGFR NON- AMER. (test 98 ML/MIN/1.73 code = 28547) CALC BUN/CREAT (test code = 13 RATIO 2235) SODIUM (test code = 2231) 141 MEQ/L POTASSIUM (test code = 2228) 3.8 MEQ/L CHLORIDE (test code = 2215) 101 MEQ/L CARBON DIOXIDE (test code = 30 MEQ/L 220) CALCIUM (test code = 2209) 9.8 MG/DL PROTEIN, TOTAL (test code = 7.6 G/DL 2228) ALBUMIN (test code = 2201) 4.3 G/DL CALC GLOBULIN (test code = 3.3 G/DL 2240) CALC A/G RATIO (test code = 1.3 RATIO 2234) BILIRUBIN, TOTAL (test code = 0.2 MG/DL 2206) ALKALINE PHOSPHATASE (test 60 U/L code = 2204) AST (test code = 2218) 15 U/L ALT (test code = 2219) 10 U/L COMPREHENSIVE METABOLIC [id number] 00:00:00 Test Item Value Reference Range Interpretation Comments GLUCOSE (test code = 2217) 85 MG/DL BUN (test code = 2208) 10 MG/DL CREATININE (test code = 2214) 0.78 MG/DL eGFR AMER. (test code 114 ML/MIN/1.73 = 42089) eGFR NON- AMER. (test 98 ML/MIN/1.73 code = 41836) CALC BUN/CREAT (test code = 13 RATIO 2235) SODIUM (test code = 2231) 141 MEQ/L POTASSIUM (test code = 2228) 3.8 MEQ/L CHLORIDE (test code = 2215) 101 MEQ/L CARBON DIOXIDE (test code = 30 MEQ/L 220) CALCIUM (test code = 2209) 9.8 MG/DL PROTEIN, TOTAL (test code = 7.6 G/DL 2228) ALBUMIN (test code = 2201) 4.3 G/DL CALC GLOBULIN (test code = 3.3 G/DL 2240) CALC A/G RATIO (test code = 1.3 RATIO 2234) BILIRUBIN, TOTAL (test code = 0.2 MG/DL 2206) ALKALINE PHOSPHATASE (test 60 U/L code = 2204) AST (test code = 2218) 15 U/L ALT (test code = 2219) 10 U/L CBC W/AUTO [id number] 00:00:00 Test Item Value Reference Range Interpretation Comments WBC (test code = 1001) 10.1 K/UL RBC (test code = 1002) 4.47 M/UL HEMOGLOBIN (test code = 1003) 10.1 G/DL HEMATOCRIT (test code = 1004) 32.4 % MCV (test code = 1005) 72.5 fL MCH (test code = 1006) 22.6 PG MCHC (test code = 1007) 31.2 G/DL RDW (test code = 1038) 14.5 % NEUTROPHILS (test code = 1008) 70.5 % LYMPHOCYTES (test code = 1010) 20.2 % MONOCYTES (test code = 1011) 6.1 % EOSINOPHILS (test code = 1012) 2.6 % BASOPHILS (test code = 1013) 0.6 % PLATELET COUNT (test code = 1015) 447 K/UL CBC W/AUTO [id number] 00:00:00 Test Item Value Reference Range Interpretation Comments WBC (test code = 1001) 10.1 K/UL RBC (test code = 1002) 4.47 M/UL HEMOGLOBIN (test code = 1003) 10.1 G/DL HEMATOCRIT (test code = 1004) 32.4 % MCV (test code = 1005) 72.5 fL MCH (test code = 1006) 22.6 PG MCHC (test code = 1007) 31.2 G/DL RDW (test code = 1038) 14.5 % NEUTROPHILS (test code = 1008) 70.5 % LYMPHOCYTES (test code = 1010) 20.2 % MONOCYTES (test code = 1011) 6.1 % EOSINOPHILS (test code = 1012) 2.6 % BASOPHILS (test code = 1013) 0.6 % PLATELET COUNT (test code = 1015) 447 K/UL HEMOGLOBIN [id number] 00:00:00 Test Item Value Reference Range Interpretation Comments HEMOGLOBIN A1c (test code = 80063) 5.1 % HEMOGLOBIN [id number] 00:00:00 Test Item Value Reference Range Interpretation Comments HEMOGLOBIN A1c (test code = 04231) 5.1 % LIPID [id number] 00:00:00 Test Item Value Reference Range Interpretation Comments CHOLESTEROL (test code = 2210) 155 MG/DL TRIGLYCERIDES (test code = 2232) 116 MG/DL HDL CHOLESTEROL (test code = 2220) 45 MG/DL CALC LDL CHOL (test code = 2237) 87 MG/DL RISK RATIO LDL/HDL (test code = 1.93 RATIO 2238) COMPREHENSIVE METABOLIC [id number] 00:00:00 Test Item Value Reference Range Interpretation Comments GLUCOSE (test code = 2217) 85 MG/DL BUN (test code = 2208) 10 MG/DL CREATININE (test code = 2214) 0.78 MG/DL eGFR AMER. (test code 114 ML/MIN/1.73 = 75317) eGFR NON- AMER. (test 98 ML/MIN/1.73 code = 52288) CALC BUN/CREAT (test code = 13 RATIO 2235) SODIUM (test code = 2231) 141 MEQ/L POTASSIUM (test code = 2228) 3.8 MEQ/L CHLORIDE (test code = 2215) 101 MEQ/L CARBON DIOXIDE (test code = 30 MEQ/L 2205) CALCIUM (test code = 2209) 9.8 MG/DL PROTEIN, TOTAL (test code = 7.6 G/DL 2228) ALBUMIN (test code = 2201) 4.3 G/DL CALC GLOBULIN (test code = 3.3 G/DL 0) CALC A/G RATIO (test code = 1.3 RATIO 4) BILIRUBIN, TOTAL (test code = 0.2 MG/DL 2206) ALKALINE PHOSPHATASE (test 60 U/L code = 2204) AST (test code = 2218) 15 U/L ALT (test code = 2219) 10 U/L CBC W/AUTO [id number] 00:00:00 Test Item Value Reference Range Interpretation Comments WBC (test code = 1001) 10.1 K/UL RBC (test code = 1002) 4.47 M/UL HEMOGLOBIN (test code = 1003) 10.1 G/DL HEMATOCRIT (test code = 1004) 32.4 % MCV (test code = 1005) 72.5 fL MCH (test code = 1006) 22.6 PG MCHC (test code = 1007) 31.2 G/DL RDW (test code = 1038) 14.5 % NEUTROPHILS (test code = 1008) 70.5 % LYMPHOCYTES (test code = 1010) 20.2 % MONOCYTES (test code = 1011) 6.1 % EOSINOPHILS (test code = 1012) 2.6 % BASOPHILS (test code = 1013) 0.6 % PLATELET COUNT (test code = 1015) 447 K/UL CBC W/AUTO [id number] 00:00:00 Test Item Value Reference Range Interpretation Comments WBC (test code = 1001) 10.1 K/UL RBC (test code = 1002) 4.47 M/UL HEMOGLOBIN (test code = 1003) 10.1 G/DL HEMATOCRIT (test code = 1004) 32.4 % MCV (test code = 1005) 72.5 fL MCH (test code = 1006) 22.6 PG MCHC (test code = 1007) 31.2 G/DL RDW (test code = 1038) 14.5 % NEUTROPHILS (test code = 1008) 70.5 % LYMPHOCYTES (test code = 1010) 20.2 % MONOCYTES (test code = 1011) 6.1 % EOSINOPHILS (test code = 1012) 2.6 % BASOPHILS (test code = 1013) 0.6 % PLATELET COUNT (test code = 1015) 447 K/UL CBC W/AUTO [id number] 00:00:00 Test Item Value Reference Range Interpretation Comments WBC (test code = 1001) 10.1 K/UL RBC (test code = 1002) 4.47 M/UL HEMOGLOBIN (test code = 1003) 10.1 G/DL HEMATOCRIT (test code = 1004) 32.4 % MCV (test code = 1005) 72.5 fL MCH (test code = 1006) 22.6 PG MCHC (test code = 1007) 31.2 G/DL RDW (test code = 1038) 14.5 % NEUTROPHILS (test code = 1008) 70.5 % LYMPHOCYTES (test code = 1010) 20.2 % MONOCYTES (test code = 1011) 6.1 % EOSINOPHILS (test code = 1012) 2.6 % BASOPHILS (test code = 1013) 0.6 % PLATELET COUNT (test code = 1015) 447 K/UL HEMOGLOBIN [id number] 00:00:00 Test Item Value Reference Range Interpretation Comments HEMOGLOBIN A1c (test code = 17441) 5.1 % HEMOGLOBIN [id number] 00:00:00 Test Item Value Reference Range Interpretation Comments HEMOGLOBIN A1c (test code = 51596) 5.1 % HEMOGLOBIN [id number] 00:00:00 Test Item Value Reference Range Interpretation Comments HEMOGLOBIN A1c (test code = 31123) 5.1 % LIPID [id number] 00:00:00 Test Item Value Reference Range Interpretation Comments CHOLESTEROL (test code = 2210) 155 MG/DL TRIGLYCERIDES (test code = 2232) 116 MG/DL HDL CHOLESTEROL (test code = 2220) 45 MG/DL CALC LDL CHOL (test code = 2237) 87 MG/DL RISK RATIO LDL/HDL (test code = 1.93 RATIO 8)
--- NOTE | 2022-07-29 08:08 | EDPHYS ---
Physician Documentation [facility] Name: Roque Smith Age: 36 yrs Sex: Female : 1985 Arrival Date: 07/29/2022 Time: 07:49 Bed DIS6 Private MD: ED Physician Rickie Paniagua HPI: 07/29 08:04 This 36 yrs old Black Female presents to ER via Ambulatory with complaints of Bump On rn Bottom Of Foot. 08:04 The patient presents with swelling. The complaints affect the left foot. Onset: The rn symptoms/episode began/occurred 2 month(s) ago. Modifying factors: The symptoms are alleviated by nothing, the symptoms are aggravated by weight bearing. Associated signs and symptoms: Pertinent positives: swelling, Pertinent negatives: fever, rash, weakness. Severity of symptoms: At their worst the symptoms were mild, in the emergency department the symptoms are unchanged. The patient has experienced similar episodes in the past. The patient has not recently seen a physician. Pt reports atleast 2 months of "bump on bottom of left foot", constant, worsens at end of workday. No fever. No rash. No warmth. . Historical: - Allergies: 08:02 PENICILLINS; iw - PMHx: 08:02 Asthma; Hypertension; iw - Family history:: not pertinent. - Hospitalizations: : No recent hospitalization is reported. ROS: 08:04 Constitutional: Negative for fever, chills, and weight loss, Eyes: Negative for injury, rn pain, redness, and discharge, Neck: Negative for injury, pain, and swelling, Cardiovascular: Negative for chest pain, palpitations, and edema, Respiratory: Negative for shortness of breath, cough, wheezing, and pleuritic chest pain, Abdomen/GI: Negative for abdominal pain, nausea, vomiting, diarrhea, and constipation, MS/Extremity: + bump on bottom of left foot Skin: Negative for injury, rash, and discoloration, Neuro: Negative for headache, weakness, numbness, tingling, and seizure. Exam: 08:04 Constitutional: This is a well developed, well nourished patient who is awake, alert, rn and in no acute distress. Cardiovascular: Regular rate and rhythm. No pulse deficits. Skin: Warm, dry with normal turgor. Normal color with no rashes, no lesions, and no evidence of cellulitis. MS/ Extremity: Pulses equal, no cyanosis. Neurovascular intact. Full, normal range of motion. Equal circumference. Small 1 cm soft mobile nodule on bottom of left foot along plantar tendon. No erythema/warmth/fluctuance. Vital Signs: 08:01 BP 145 / 84; Pulse 85; Resp 16; Temp 98.4; Pulse Ox 100% on R/A; iw MDM: 07:50 Patient medically screened. rn 08:04 Differential diagnosis: nodule, cyst. Data reviewed: vital signs, nurses notes, and as rn a result, I will discharge patient. Counseling: I had a detailed discussion with the patient and/or guardian regarding: the historical points, exam findings, and any diagnostic results supporting the discharge/admit diagnosis, the need for outpatient follow up, to return to the emergency department if symptoms worsen or persist or if there are any questions or concerns that arise at home. Special discussion: I discussed with the patient/guardian in detail that at this point there is no indication for admission to the hospital. It is understood, however, that if the symptoms persist or worsen the patient needs to return immediately for re-evaluation. Based on the history and exam findings, there is no indication for further emergent testing or inpatient evaluation. 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 Administered Medications: No medications were administered Disposition Summary: 07/29/22 08:07 Discharge Ordered Location: Home rn Problem: an ongoing problem rn Symptoms: are unchanged rn Condition: Stable rn Diagnosis - Pain in left foot rn Followup: rn - With: Private Physician - When: As needed - Reason: Recheck today's complaints, Re-evaluation by your physician Discharge Instructions: - Discharge Summary Sheet rn - Foot Pain rn Forms: - Medication Reconciliation Form rn - Thank You Letter rn - Antibiotic gallery intern - Prescription Opioid Use rn Signatures: Rosalia Corey RN RN iw Rickie Paniagua MD MD rn
--- NOTE | 2022-07-29 08:08 | ER ---
Nurse's Notes [facility] Name: Roque Smith Age: 36 yrs Sex: Female : 1985 Arrival Date: 07/29/2022 Time: 07:49 Bed DIS6 Private MD: Diagnosis: Pain in left foot Presentation: 07/29 08:01 Chief complaint: Patient states: has a bump on bottom of right foot X 2 months , thinks iw it's from wearing an oversized shoe/crocs. Coronavirus screen: At this time, the client does not indicate any symptoms associated with coronavirus-19. Ebola Screen: Patient negative for fever greater than or equal to 101.5 degrees Fahrenheit, and additional compatible Ebola Virus Disease symptoms Patient denies exposure to infectious person. Patient denies travel to an Ebola-affected area in the 21 days before illness onset. No symptoms or risks identified at this time. Initial Sepsis Screen: Does the patient meet any 2 criteria? No. Patient's initial sepsis screen is negative. Does the patient have a suspected source of infection? No. Patient's initial sepsis screen is negative. Risk Assessment: Do you want to hurt yourself or someone else? Patient reports no desire to harm self or others. Onset of symptoms was May 2022. 08:01 Method Of Arrival: Ambulatory iw 08:01 Acuity: DANNIE 4 iw Historical: - Allergies: 08:02 PENICILLINS; iw - PMHx: 08:02 Asthma; Hypertension; iw - Family history:: not pertinent. - Hospitalizations: : No recent hospitalization is reported. Vital Signs: 08:01 BP 145 / 84; Pulse 85; Resp 16; Temp 98.4; Pulse Ox 100% on R/A; iw ED Course: 07:49 Patient arrived in ED. rg4 07:50 Rickie Paniagua MD is Attending Physician. rn 08:00 Rosalia Corey RN is Primary Nurse. iw 08:02 Triage completed. iw 08:02 Arm band placed on. iw Administered Medications: No medications were administered Outcome: 08:07 Discharge ordered by . rn 08:40 Patient left the ED. iw Signatures: Rosalia Corey RN RN iw Nieto, Roman, MD MD rn Garcia, Rubi rg4
[2022-07-29 13:55] VITALS: BP 145/84; TEMP 98.4; O2SAT 100
== END 2022-07-29 08:40 | disposition home or self-care (01) ==
LOC: ER 07:42
DX: M79.672 Pain in left foot (principal); Z88.0 Allergy status to penicillin
CPT/HCPCS: 99281